=== PATIENT | female | born 1985 | race Caucasian/White ===

== ENCOUNTER 2016-11-03 08:57 | Emergency (ER) | payer OTHER ==
[~2016-11-03] VITALS: Ht 165.1 cm; Wt 77.3 kg
[~2016-11-03 08:57] MED LIST: ADDERALL XR 1515 MG PO; ADDERALL XR 2020 MG PO; ADDERALL XR 3030 MG PO; ADDERALL10 MG PO; ADDERALL20 MG PO; ADDERALL30 MG PO; ALPRAZOLAM1 MG PO; ALPRAZOLAM2 MG PO; ASPIRIN600 MG PR; ATARAX,VISTARIL50 MG PO; ATORVASTATIN CA80 MG PO; Aspirin E.C. PO; BUPROPION HCL150 M2 PO; CATAPRES0.1 MG PO; CEFTIN500 MG PO; CIPRO500 MG PO; CLARITIN-D 121 EACH PO; CLONIDINE HCL0.1 MG PO; COUMADIN4 MG PO; COUMADIN5 MG PO; Colace PO; Coumadin Protocol PO; DEXTROAMP-AMPHE30 MG PO; ENDOCET 5-3251 EACH PO; FLEXERIL10 MG PO; FLEXERIL5 MG PO; Feosol PO; HYDROCODON-ACE1 EAC5 PO; HYDROCODON-ACE1 EAC7 PO; Habitrol,Nicoderm CQ TD; Heparin IV; IRON PO; IRON SUPPLEMEN325 MG PO; KEFLEX500 MG PO; LEVAQUIN750 MG PO; LIDOCAINE700 MG TD; LIORESAL10 MG PO; LODINE200 MG PO; LOVENOX100 MG/1 M SC; LOVENOX60 MG/0.6 SC; LOVENOX80 MG/0.8 SC; LYRICA100 MG PO; Lovenox SC; MACROBID100 MG PO; MIRTAZAPINE15 MG PO; MIRTAZAPINE45 MG PO; MOBIC15 MG PO; MOTRIN800 MG PO; Motrin PO; NAPROSYN500 MG PO; NATALCARE RX1 TABLET PO; NICOTINE PATCH1 EAC2 TD; NORCO 5/3251 TABLET PO; PEN-VEE K,VEET500 MG PO; PERCOCET 5/31 TABLET PO; PREDNISONE10 M1 PO; PREDNISONE20 MG PO; PRENATAL TABLE1 EAC3 PO; Percocet 5/325,Endoc PO; Proventil,Ventolin H IH; QUETIAPINE FUM100 MG PO; QUETIAPINE FUM300 MG PO; QUETIAPINE FUM400 MG PO; REMERON PO; REMERON45 MG PO; Remove Nicotine Patc TD; SENNA-TIME S T1 EACH PO; SEROQUEL XR300 MG PO; SEROQUEL100 MG PO; SEROQUEL400 MG PO; SEROquel PO; SKELAXIN800 MG PO; SODIUM CHLOR1L 0.9 IV; SUBUTEX8 MG SL; TOPIRAMATE25 MG PO; TOPIRAMATE50 MG PO; TORADOL10 MG PO; TRAMADOL HCL50 MG PO; TRAZODONE HCL50 MG PO; ULTRAM50 MG PO; VALIUM5 MG PO; VENTOLIN HFA18 GM IH; Vibramycin, Doryx PO; WARFARIN SODIUM5 MG PO; XANAX1 MG PO; XANAX2 MG PO; XARELTO1 EACH PO; XARELTO20 MG PO; ZANTAC150 MG PO; ZITHROMAX Z-PA250 MG PO; ZOFRAN4 MG PO; Zantac PO; albuterol sulfate
[2016-11-03] MEDS ORDERED: REMERON45 MG PO (09:08)
[2016-11-03] MEDS ORDERED: SEROQUEL400 MG PO (09:08)
[2016-11-03] MEDS ORDERED: XARELTO15 MG PO (09:08)
[2016-11-03] MEDS ORDERED: ADDERALL30 MG PO (09:08)
[2016-11-03 09:26] LABS: HEMATOCRIT 31.1 % (36.0-46.0); MCH 30.6 PG (29.0-34.0); MCHC 33.1 G/DL (30.0-36.0); MCV 92.3 FL (83-99); MEAN PLAT.VOLUME 9.3 uM^3 (9.5-12.4); PLATELET COUNT 377 K/uL (156-360); RBC DIS.WIDTH-CV 14.1 % (11.8-14.6); RBC DIS.WIDTH-SD 45.8 % (39-53); RED BLOOD COUNT 3.37 M/uL (3.80-5.20); WHITE BLOOD COUNT 10.5 K/uL (4.1-10.2)
[2016-11-03 09:33] LABS: INTER. NORMALIZED RATIO 0.9; PROTHROMBIN TIME 9.5 (9.2-11.2)
[2016-11-03 09:35] LABS: CHLORIDE 109 mEq/L (99-109); POTASSIUM 3.7 mEq/L (3.7-5.4); SODIUM 137 mEq/L (136-147)
[2016-11-03 09:37] LABS: GLUCOSE 95 mg/dL (70-99)
[2016-11-03 09:38] LABS: ANION GAP 12 MEQ/L (2-14)
[2016-11-03 09:41] LABS: GFR ESTIMATE (CALCULATED) > 59 mL/min/
[2016-11-03 09:42] LABS: UREA NITROGEN (BUN) 12 mg/dL (9-23)
[2016-11-03 11:40] VITALS: BP 113/75
== END 2016-11-03 11:42 | disposition left against medical advice (07) ==
LOC: EME → EDBD 08:57 → EME 08:57
PROVIDERS: Nurse Practitioner Family
DX: M79.89 Other specified soft tissue disorders (principal); Z53.20 Procedure and treatment not carried out because of patient's decision for unspecified reasons
CPT/HCPCS: 80048; 85027; 85610; 93971; 99281; 99284

== ENCOUNTER 2016-12-25 17:42 | Inpatient (IN) | payer OTHER ==
[2016-12-25] VITALS (15 sets, daily range): BP systolic 114–187; BP diastolic 64–144
[~2016-12-25] VITALS: Ht 165.1 cm; Wt 72.8 kg
[~2016-12-25 17:42] MED LIST changes: +XARELTO15 MG PO
[2016-12-25] MEDS ORDERED: Subutex PO (18:06)
[2016-12-25 18:47] LABS: Estimated Average Glucose 103 mg/dL (70-123); HEMOGLOBIN A1c (GLYCOHEMOGLOB) 5.2 % HGB (Below 5.7)
[2016-12-25 18:48] LABS: HEMATOCRIT 34.8 % (36.0-46.0); MCH 29.1 PG (29.0-34.0); MCHC 31.9 G/DL (30.0-36.0); MCV 91.1 FL (83-99); MEAN PLAT.VOLUME 9.8 uM^3 (9.5-12.4); PLATELET COUNT 235 K/uL (156-360); RBC DIS.WIDTH-CV 15.2 % (11.8-14.6); RBC DIS.WIDTH-SD 50.4 % (39-53); RED BLOOD COUNT 3.82 M/uL (3.80-5.20); WHITE BLOOD COUNT 13.8 K/uL (4.1-10.2)
[2016-12-25 18:51] LABS: PTT 27.5 (25-32)
[2016-12-25 19:02] LABS: FIBRINOGEN 542 MG/DL (160-450)
[2016-12-25 19:11] LABS: INTER. NORMALIZED RATIO 0.9
[2016-12-25 19:39] LABS: ANION GAP 8 MEQ/L (2-14); CHLORIDE 106 MEQ/L (99-109); POTASSIUM 3.9 MEQ/L (3.7-5.4); SAMPLE HEMOLYSIS CHECK 0; SAMPLE ICTERIC CHECK 0; SAMPLE LIPEMIA CHECK 0; SODIUM 137 MEQ/L (136-147); TOTAL BILIRUBIN 0.2 MG/DL (0.0-1.0)
[2016-12-25 19:45] LABS: ALKALINE PHOSPHATASE 153 IU/L (3-129); GFR ESTIMATE (CALCULATED) > 59 mL/min/; GLUCOSE 73 mg/dL (70-99); LACTATE DEHYDROGENASE 192 IU/L (20-246); UREA NITROGEN (BUN) 17 mg/dL (9-23); URIC ACID 5.5 mg/dL (3.1-9.2)
[2016-12-25 20:40] LABS: AMPHETAMINES QUANT VALUE 0 NG/ML; BARBITUATES QUANT VALUE 0 NG/ML; BENZODIAZEPINES QUANT VALUE 0 NG/ML; BENZODIAZEPINES, URINE SCREEN Negative (200 ng/mL); MARIJUANA QUANT VALUE 0 NG/ML; OPIATES QUANTITATIVE VALUE 0 NG/ML; PHENCYCLIDINE QUANT VALUE 0 NG/ML; UR CREATININE CONCENTRATION 53.4 MG/DL
[2016-12-26 03:54] VITALS: BP 114/68
[2016-12-26 06:46] LABS: EOSINOPHIL (%) 0.4 % (0-5); EOSINOPHIL COUNT 0.1 K/uL (0-0.3); HEMATOCRIT 28.1 % (36.0-46.0); IMMATURE GRANULOCYTE (%) 0.6 % (0.0-0.7); IMMATURE GRANULOCYTE COUNT 0.1 K/uL; INSTRUMENT ABS NEUTROPHIL CT 11.5 K/uL; MCH 29.6 PG (29.0-34.0); MCHC 33.1 G/DL (30.0-36.0); MCV 89.5 FL (83-99); MEAN PLAT.VOLUME 10.3 uM^3 (9.5-12.4); MONOCYTE (%) 4.1 % (3-12); MONOCYTE COUNT 0.6 K/uL (0-0.8); NEUTROPHIL (%) 80.5 % (45-76); NEUTROPHIL COUNT 11.5 K/uL (1.8-6.4); PLATELET COUNT 214 K/uL (156-360); RBC DIS.WIDTH-CV 15.1 % (11.8-14.6); RED BLOOD COUNT 3.14 M/uL (3.80-5.20); WHITE BLOOD COUNT 14.3 K/uL (4.1-10.2)
[2016-12-26 07:36] VITALS: BP 126/68
[2016-12-26] MEDS ORDERED: AUGMENTIN875 MG PO (07:54)
[2016-12-26] MEDS ORDERED: LOVENOX40 MG/0.4 SC (07:54)
[2016-12-26] MEDS ORDERED: IBUPROFEN800 MG PO (07:54)
[2016-12-26 08:47] LABS: TREPONEMA ANTIBODY NEGATIVE (NEGATIVE)
[2016-12-26 10:34] LABS: HPCA INDEX 0.18
[2016-12-26 10:35] LABS: ANTI-HEPATITIS A VIRUS (IGM) Nonreactive; HAV INDEX 0.09
[2016-12-26 10:36] LABS: ANTI-HEPATITIS B CORE (IGM) Nonreactive; HBC IgM INDEX 0.07
[2016-12-26 15:30] VITALS: BP 108/70
[2016-12-26 20:00] VITALS: BP 127/69
[2016-12-26 22:31] VITALS: BP 94/62
[2016-12-27 04:49] VITALS: BP 129/66
[2016-12-27 07:52] VITALS: BP 126/78
[2016-12-27] MEDS ORDERED: DOCUSATE SODIU100 MG PO (10:49)
[2016-12-27] MEDS ORDERED: HEMOCYTE324 MG PO (10:50)
[2016-12-27] MEDS ORDERED: IBUPROFEN800 MG PO (10:51)
[2016-12-27] MEDS ORDERED: LOVENOX60 MG/0.6 SC (10:51)
[2016-12-27 13:24] LABS: CHLAMYDIA TRACHOMATIS NEGATIVE; NEISSERIA GONORRHOEAE NEGATIVE
== END 2016-12-27 13:45 | disposition home or self-care (01) | DRG 775 ==
LOC: LDRP-OP 17:42 → 2WEST 17:47 → LDRP-OP 03-14 17:42
PROVIDERS: Advanced Practice Midwife; Obstetrics & Gynecology Obstetrics
PROC: 10E0XZZ Delivery of Products of Conception, External Approach (ICD-10-PCS; principal; 2016-12-25)
PROC: 3E0P7GC Introduction of Other Therapeutic Substance into Female Reproductive, Via Natural or Artificial Opening (ICD-10-PCS; 2016-12-25)
DX: O36.4XX1 Maternal care for intrauterine death, fetus 1 (principal); O60.14X1 Preterm labor third trimester with preterm delivery third trimester, fetus 1; F33.9 Major depressive disorder, recurrent, unspecified; F11.20 Opioid dependence, uncomplicated; Z37.1 Single stillbirth; O99.344 Other mental disorders complicating childbirth; O36.8130 Decreased fetal movements, third trimester, not applicable or unspecified; O99.334 Smoking (tobacco) complicating childbirth; O77.0 Labor and delivery complicated by meconium in amniotic fluid; F90.9 Attention-deficit hyperactivity disorder, unspecified type; F41.9 Anxiety disorder, unspecified; F17.210 Nicotine dependence, cigarettes, uncomplicated; Z3A.31 31 weeks gestation of pregnancy; Z86.73 Personal history of transient ischemic attack (TIA), and cerebral infarction without residual deficits; Z86.718 Personal history of other venous thrombosis and embolism; Z86.711 Personal history of pulmonary embolism; Z91.128 Patient's intentional underdosing of medication regimen for other reason
CPT/HCPCS: 76805; 80053; 80074; 80306 90; 82570; 83030; 83036; 83615; 84156; 84550; 85025; 85027; 85384; 85610; 85730; 86780; 86850; 86900; 86901; 87070; 87075; 87076; 87077; 87081; 87185; 87186; 87205; 87491; 87591; 88307; C1755; G0480; J0290; J0571; J1650; J2790; J7050; J7120

== ENCOUNTER 2017-05-01 00:17 | Emergency (ER) | payer OTHER ==
[~2017-05-01] VITALS: Ht 165.1 cm; Wt 68.3 kg
[~2017-05-01 00:17] MED LIST changes: +AUGMENTIN875 MG PO; +DOCUSATE SODIU100 MG PO; +HEMOCYTE324 MG PO; +IBUPROFEN800 MG PO; +LOVENOX40 MG/0.4 SC; +Subutex PO
[2017-05-01] MEDS ORDERED: PERCOCET 5/31 TABLET PO (02:01)
[2017-05-01 02:54] VITALS: BP 113/76
== END 2017-05-01 02:56 | disposition home or self-care (01) ==
LOC: EME 00:17
DX: S30.0XXA Contusion of lower back and pelvis, initial encounter (principal); W18.2XXA Fall in (into) shower or empty bathtub, initial encounter; Y93.E1 Activity, personal bathing and showering; M51.26 Other intervertebral disc displacement, lumbar region; I69.351 Hemiplegia and hemiparesis following cerebral infarction affecting right dominant side; R29.6 Repeated falls; Z86.711 Personal history of pulmonary embolism; Z86.718 Personal history of other venous thrombosis and embolism; F17.200 Nicotine dependence, unspecified, uncomplicated
CPT/HCPCS: 72131; 99281; 99284

== ENCOUNTER 2017-05-09 20:31 | Emergency (ER) | payer OTHER ==
[~2017-05-09] VITALS: Ht 152.4 cm; Wt 66.5 kg
[2017-05-09 23:27] VITALS: BP 106/67
== END 2017-05-09 23:20 | disposition home or self-care (01) ==
LOC: EME 20:31
DX: R07.89 Other chest pain (principal); G89.29 Other chronic pain; Z91.81 History of falling; Z86.73 Personal history of transient ischemic attack (TIA), and cerebral infarction without residual deficits; F17.200 Nicotine dependence, unspecified, uncomplicated
CPT/HCPCS: 71020; 99281; 99284

== ENCOUNTER 2017-06-19 18:04 | Emergency (ER) | payer OTHER ==
[~2017-06-19] VITALS: Ht 165.1 cm; Wt 65.8 kg
[2017-06-19 19:07] VITALS: BP 126/84
== END 2017-06-19 19:14 | disposition home or self-care (01) ==
LOC: EME 18:04
DX: R41.82 Altered mental status, unspecified (principal); F19.10 Other psychoactive substance abuse, uncomplicated; Z86.711 Personal history of pulmonary embolism; Z86.718 Personal history of other venous thrombosis and embolism; F17.200 Nicotine dependence, unspecified, uncomplicated
CPT/HCPCS: 93005; 99281; 99284

== ENCOUNTER 2017-07-30 12:10 | Emergency (ER) | payer OTHER ==
[~2017-07-30] VITALS: Ht 165.1 cm; Wt 63.8 kg
[2017-07-30 13:34] LABS: ADD MIUA? YES; BILIRUBIN NEGATIVE; BLOOD MODERATE; COLOR YELLOW ((YELLOW)); GLUCOSE (STRIP) NEGATIVE; KETONES NEGATIVE; LEUKOCYTES LARGE; NITRITE POSITIVE; PROTEIN (STRIP) 100; SPECIFIC GRAVITY 1.015 (1.000-1.030); UROBILINOGEN 0.2 MG/DL (0.2-1.0)
[2017-07-30 13:41] LABS: BACTERIA RARE /HPF; CALCIUM OXALATE CRYSTALS 1+ /HPF; EPITHELIAL CELLS 1+ /HPF; MUCUS TRACE /LPF; WHITE BLOOD CELLS TNTC /HPF (0-5)
[2017-07-30 13:53] LABS: EOSINOPHIL (%) 0 % (0-5); HEMATOCRIT 35.4 % (36.0-46.0); IMMATURE GRANULOCYTE (%) 0.4 % (0.0-0.7); INSTRUMENT ABS NEUTROPHIL CT 8.5 K/uL; LYMPHOCYTE COUNT 1.4 K/uL (1.0-2.8); MCH 27.2 PG (29.0-34.0); MCHC 31.4 G/DL (30.0-36.0); MCV 86.8 FL (83-99); MEAN PLAT.VOLUME 10.2 uM^3 (9.5-12.4); MONOCYTE (%) 6.5 % (3-12); MONOCYTE COUNT 0.7 K/uL (0-0.8); NEUTROPHIL (%) 79.8 % (45-76); NEUTROPHIL COUNT 8.5 K/uL (1.8-6.4); PLATELET COUNT 282 K/uL (156-360); RBC DIS.WIDTH-CV 16.5 % (11.8-14.6); RBC DIS.WIDTH-SD 52.7 % (39-53); RED BLOOD COUNT 4.08 M/uL (3.80-5.20); WHITE BLOOD COUNT 10.7 K/uL (4.1-10.2)
[2017-07-30 14:02] LABS: CHLORIDE 107 mEq/L (99-109); POTASSIUM 4.4 mEq/L (3.7-5.4); SODIUM 138 mEq/L (136-147)
[2017-07-30 14:03] LABS: GLUCOSE 75 mg/dL (70-99)
[2017-07-30 14:05] LABS: ANION GAP 11 MEQ/L (2-14)
[2017-07-30 14:07] LABS: GFR ESTIMATE (CALCULATED) 55 mL/min/
[2017-07-30 14:08] LABS: UREA NITROGEN (BUN) 14 mg/dL (9-23)
[2017-07-30 14:10] LABS: CREATINE KINASE 266 IU/L (1-294)
[2017-07-30] MEDS ORDERED: INDOCIN25 MG PO (14:35)
[2017-07-30] MEDS ORDERED: KEFLEX500 MG PO (14:35)
[2017-07-30 15:36] VITALS: BP 93/53
== END 2017-07-30 15:37 | disposition home or self-care (01) ==
LOC: EME 12:10
PROVIDERS: Physician Assistant
DX: N39.0 Urinary tract infection, site not specified (principal); J06.9 Acute upper respiratory infection, unspecified; M79.1 Myalgia; I69.951 Hemiplegia and hemiparesis following unspecified cerebrovascular disease affecting right dominant side; Z86.718 Personal history of other venous thrombosis and embolism; Z86.711 Personal history of pulmonary embolism; F17.200 Nicotine dependence, unspecified, uncomplicated
CPT/HCPCS: 80048; 81003; 82550; 85025; 87077; 87086; 87186; 99281; 99284; J0696; J1885

== ENCOUNTER 2017-08-11 12:24 | Inpatient (IN) | payer OTHER ==
[~2017-08-11] VITALS: Ht 165.1 cm; Wt 74.0 kg
[~2017-08-11 12:24] MED LIST changes: +INDOCIN25 MG PO
[2017-08-11 12:53] LABS: EOSINOPHIL (%) 0 % (0-5); HEMATOCRIT 28.6 % (36.0-46.0); IMMATURE GRANULOCYTE (%) 1.3 % (0.0-0.7); IMMATURE GRANULOCYTE COUNT 0.3 K/uL; INSTRUMENT ABS NEUTROPHIL CT 17.6 K/uL; LYMPHOCYTE COUNT 0.8 K/uL (1.0-2.8); MCH 27.5 PG (29.0-34.0); MCHC 31.8 G/DL (30.0-36.0); MCV 86.4 FL (83-99); MEAN PLAT.VOLUME 9.7 uM^3 (9.5-12.4); MONOCYTE (%) 6.9 % (3-12); MONOCYTE COUNT 1.4 K/uL (0-0.8); NEUTROPHIL (%) 87.6 % (45-76); NEUTROPHIL COUNT 17.6 K/uL (1.8-6.4); PLATELET COUNT 291 K/uL (156-360); RBC DIS.WIDTH-SD 50.7 % (39-53); RED BLOOD COUNT 3.31 M/uL (3.80-5.20); WHITE BLOOD COUNT 20.2 K/uL (4.1-10.2)
[2017-08-11 13:01] LABS: CHLORIDE 100 mEq/L (99-109); POTASSIUM 4.4 mEq/L (3.7-5.4); SODIUM 131 mEq/L (136-147)
[2017-08-11 13:02] LABS: GLUCOSE 102 mg/dL (70-99)
[2017-08-11 13:04] LABS: ANION GAP 8 MEQ/L (2-14)
[2017-08-11 13:06] LABS: GFR ESTIMATE (CALCULATED) 21 mL/min/
[2017-08-11 13:07] LABS: UREA NITROGEN (BUN) 24 mg/dL (9-23)
[2017-08-11 15:48] LABS: INFLUENZA A VIRAL ANTIGEN NEGATIVE; INFLUENZA B VIRAL ANTIGEN NEGATIVE
[2017-08-11 17:35] LABS: AMPHETAMINE NEGATIVE (500 ng/mL); BARBITURATES NEGATIVE (200 ng/mL); BENZODIAZEPINES NEGATIVE (150 ng/mL); COCAINE PRESUMPTIVE POSITIVE (150 ng/mL); INTERNAL CONTROLS VALID? YES; METHADONE NEGATIVE (200 ng/mL); METHAMPHETAMINE NEGATIVE (500 ng/mL); OPIATES (MORPHINE) PRESUMPTIVE POSITIVE (100 ng/mL); OXYCODONE NEGATIVE (100 ng/mL); PHENCYCLIDINE NEGATIVE (25 ng/mL); PROPOXYPHENE NEGATIVE (300 ng/mL); THC CANNABINOIDS NEGATIVE (50 ng/mL); TRICYCLIC ANTIDEPRESSANTS NEGATIVE (300 ng/mL)
[2017-08-11 17:36] LABS: ADD MEDTOX COMMENT Y
[2017-08-11 17:49] LABS: ADD MIUA? YES; BILIRUBIN NEGATIVE; BLOOD SMALL; COLOR AMBER ((YELLOW)); GLUCOSE (STRIP) NEGATIVE; KETONES NEGATIVE; LEUKOCYTES LARGE; NITRITE NEGATIVE; PROTEIN (STRIP) >=500; SPECIFIC GRAVITY 1.013 (1.000-1.030)
[2017-08-11 18:00] LABS: OPIATES QUANTITATIVE VALUE 0 NG/ML
[2017-08-11 18:02] LABS: BACTERIA 2+ /HPF; EPITHELIAL CELLS 1+ /HPF; MUCUS TRACE /LPF; WHITE BLOOD CELLS TNTC /HPF (0-5); WHITE BLOOD CELLS CLUMP MANY /HPF (0-5)
[2017-08-11] MEDS ORDERED: XARELTO20 MG PO (18:22)
[2017-08-11] MEDS ORDERED: TYLENOL EXTRA500 MG PO (18:24)
[2017-08-11 18:30] LABS: CHLORIDE 100 mEq/L (99-109); POTASSIUM 3.9 mEq/L (3.7-5.4); SODIUM 132 mEq/L (136-147)
[2017-08-11 18:33] LABS: GLUCOSE 95 mg/dL (70-99)
[2017-08-11 18:34] LABS: ANION GAP 9 MEQ/L (2-14)
[2017-08-11 18:35] LABS: TOTAL BILIRUBIN 0.5 mg/dL (0.0-1.0)
[2017-08-11 18:36] LABS: ALKALINE PHOSPHATASE 68 IU/L (3-129); GFR ESTIMATE (CALCULATED) 20 mL/min/
[2017-08-11 18:37] LABS: UREA NITROGEN (BUN) 27 mg/dL (9-23)
[2017-08-11 18:41] LABS: TROP-I INTERPRETATION NEGATIVE; TROPONIN-I < 0.01 ng/mL (0.0-0.30)
[2017-08-11 22:37] LABS: INTER. NORMALIZED RATIO 1.3; PROTHROMBIN TIME 15.2 SEC (10.2-12.9)
[2017-08-12] VITALS (23 sets, daily range): BP systolic 79–140; BP diastolic 50–98
[2017-08-12] MEDS ORDERED: BUPRENORPHINE HC8 MG SL (01:28)
[2017-08-12 02:15] LABS: METH RESISTANT S AUREUS PCR NEGATIVE (NEGATIVE); PROBE CHECK PASS; SPECIMEN PROCESSING CONTROL PASS
[2017-08-12 04:57] LABS: INTER. NORMALIZED RATIO 1.3; PROTHROMBIN TIME 14.3 SEC (10.2-12.9)
[2017-08-12 05:01] LABS: CHLORIDE 110 mEq/L (99-109); EOSINOPHIL (%) 0.6 % (0-5); EOSINOPHIL COUNT 0.1 K/uL (0-0.3); IMMATURE GRANULOCYTE (%) 0.5 % (0.0-0.7); IMMATURE GRANULOCYTE COUNT 0.1 K/uL; INSTRUMENT ABS NEUTROPHIL CT 8.3 K/uL; LYMPHOCYTE COUNT 0.7 K/uL (1.0-2.8); MCH 27.5 PG (29.0-34.0); MCHC 31.4 G/DL (30.0-36.0); MCV 87.6 FL (83-99); MEAN PLAT.VOLUME 10.4 uM^3 (9.5-12.4); MONOCYTE COUNT 0.6 K/uL (0-0.8); NEUTROPHIL (%) 85.2 % (45-76); NEUTROPHIL COUNT 8.3 K/uL (1.8-6.4); PLATELET COUNT 205 K/uL (156-360); POTASSIUM 4.1 mEq/L (3.7-5.4); RBC DIS.WIDTH-CV 16.5 % (11.8-14.6); RBC DIS.WIDTH-SD 53.3 % (39-53); WHITE BLOOD COUNT 9.7 K/uL (4.1-10.2)
[2017-08-12 05:02] LABS: RED BLOOD COUNT 2.51 M/uL (3.80-5.20); SODIUM 136 mEq/L (136-147)
[2017-08-12 05:03] LABS: GLUCOSE 91 mg/dL (70-99)
[2017-08-12 05:05] LABS: ANION GAP 7 MEQ/L (2-14)
[2017-08-12 05:07] LABS: GFR ESTIMATE (CALCULATED) 21 mL/min/
[2017-08-12 05:08] LABS: UREA NITROGEN (BUN) 30 mg/dL (9-23)
[2017-08-12 19:48] LABS: HEMATOCRIT 26.1 % (36.0-46.0); MCH 27.2 PG (29.0-34.0); MCHC 31.4 G/DL (30.0-36.0); MCV 86.4 FL (83-99); MEAN PLAT.VOLUME 10.2 uM^3 (9.5-12.4); PLATELET COUNT 249 K/uL (156-360); RBC DIS.WIDTH-CV 16.5 % (11.8-14.6); RBC DIS.WIDTH-SD 51.6 % (39-53); WHITE BLOOD COUNT 9.6 K/uL (4.1-10.2)
[2017-08-12 20:59] LABS: RED BLOOD COUNT 3.02 M/uL (3.80-5.20)
[2017-08-13] VITALS (17 sets, daily range): BP systolic 92–114; BP diastolic 55–71
[2017-08-13 05:30] LABS: EOSINOPHIL COUNT 0.2 K/uL (0-0.3); HEMATOCRIT 25.3 % (36.0-46.0); IMMATURE GRANULOCYTE (%) 0.4 % (0.0-0.7); INSTRUMENT ABS NEUTROPHIL CT 5.8 K/uL; INTER. NORMALIZED RATIO 1.2; LYMPHOCYTE COUNT 1.1 K/uL (1.0-2.8); MCH 27.6 PG (29.0-34.0); MCHC 31.6 G/DL (30.0-36.0); MCV 87.2 FL (83-99); MEAN PLAT.VOLUME 11.2 uM^3 (9.5-12.4); MONOCYTE (%) 4.4 % (3-12); MONOCYTE COUNT 0.3 K/uL (0-0.8); NEUTROPHIL (%) 78.1 % (45-76); NEUTROPHIL COUNT 5.8 K/uL (1.8-6.4); PLATELET COUNT 222 K/uL (156-360); PROTHROMBIN TIME 14.1 SEC (10.2-12.9); RBC DIS.WIDTH-CV 16.8 % (11.8-14.6); RBC DIS.WIDTH-SD 54.2 % (39-53); WHITE BLOOD COUNT 7.5 K/uL (4.1-10.2)
[2017-08-13 06:02] LABS: ANION GAP 9 MEQ/L (2-14); CHLORIDE 114 MEQ/L (99-109); GFR ESTIMATE (CALCULATED) 19 mL/min/; GLUCOSE 73 mg/dL (70-99); POTASSIUM 4.7 MEQ/L (3.7-5.4); SAMPLE HEMOLYSIS CHECK 1; SAMPLE ICTERIC CHECK 0; SAMPLE LIPEMIA CHECK 0; SODIUM 141 MEQ/L (136-147); UREA NITROGEN (BUN) 31 mg/dL (9-23)
[2017-08-14 06:51] LABS: EOSINOPHIL (%) 2.2 % (0-5); EOSINOPHIL COUNT 0.2 K/uL (0-0.3); HEMATOCRIT 27.3 % (36.0-46.0); IMMATURE GRANULOCYTE (%) 0.7 % (0.0-0.7); IMMATURE GRANULOCYTE COUNT 0.1 K/uL; INSTRUMENT ABS NEUTROPHIL CT 5.6 K/uL; MCH 26.8 PG (29.0-34.0); MCHC 31.1 G/DL (30.0-36.0); MCV 86.1 FL (83-99); MEAN PLAT.VOLUME 10.8 uM^3 (9.5-12.4); MONOCYTE (%) 9.8 % (3-12); MONOCYTE COUNT 0.8 K/uL (0-0.8); NEUTROPHIL (%) 73.5 % (45-76); NEUTROPHIL COUNT 5.6 K/uL (1.8-6.4); RBC DIS.WIDTH-CV 16.9 % (11.8-14.6); RBC DIS.WIDTH-SD 53.3 % (39-53); RED BLOOD COUNT 3.17 M/uL (3.80-5.20); WHITE BLOOD COUNT 7.6 K/uL (4.1-10.2)
[2017-08-14 06:54] LABS: INTER. NORMALIZED RATIO 1.2; PROTHROMBIN TIME 13.9 SEC (10.2-12.9)
[2017-08-14 07:06] LABS: PLATELET COUNT 309 K/uL (156-360)
[2017-08-14 07:33] LABS: ANION GAP 10 MEQ/L (2-14); CHLORIDE 113 MEQ/L (99-109); GFR ESTIMATE (CALCULATED) 22 mL/min/; GLUCOSE 72 mg/dL (70-99); POTASSIUM 4.8 MEQ/L (3.7-5.4); SAMPLE HEMOLYSIS CHECK 0; SAMPLE ICTERIC CHECK 0; SAMPLE LIPEMIA CHECK 0; SODIUM 141 MEQ/L (136-147); UREA NITROGEN (BUN) 27 mg/dL (9-23)
[2017-08-14 08:05] VITALS: BP 102/60
[2017-08-14 13:52] LABS: HIV INDEX 0.12; HIV-1/2 AB/AG COMBO Nonreactive; HPCA INDEX 0.28
[2017-08-14 18:02] VITALS: BP 136/74
[2017-08-14 23:58] VITALS: BP 109/65
[2017-08-15 06:27] LABS: HEMATOCRIT 28.8 % (36.0-46.0); MCH 27.1 PG (29.0-34.0); MCHC 31.6 G/DL (30.0-36.0); MCV 85.7 FL (83-99); MEAN PLAT.VOLUME 10.3 uM^3 (9.5-12.4); PLATELET COUNT 357 K/uL (156-360); RBC DIS.WIDTH-CV 16.6 % (11.8-14.6); RBC DIS.WIDTH-SD 52.8 % (39-53); RED BLOOD COUNT 3.36 M/uL (3.80-5.20); WHITE BLOOD COUNT 7.5 K/uL (4.1-10.2)
[2017-08-15 06:57] LABS: ANION GAP 6 MEQ/L (2-14); CHLORIDE 112 MEQ/L (99-109); GFR ESTIMATE (CALCULATED) 23 mL/min/; GLUCOSE 68 mg/dL (70-99); POTASSIUM 5.2 MEQ/L (3.7-5.4); SAMPLE HEMOLYSIS CHECK 0; SAMPLE ICTERIC CHECK 0; SAMPLE LIPEMIA CHECK 0; SODIUM 141 MEQ/L (136-147); UREA NITROGEN (BUN) 23 mg/dL (9-23)
[2017-08-15 07:38] VITALS: BP 110/64
[2017-08-15] MEDS ORDERED: INVANZ1 GM IV (15:57)
== END 2017-08-15 16:59 | disposition home or self-care (01) | DRG 871 ==
LOC: EME 12:24 → EDOF 19:57 → 4WEST 19:57 → ENRESERV 20:01 → EDOF 08-12 00:03 → ENRESERV 08-12 00:05 → 4WEST 08-12 00:51 → ENRESERV 08-13 14:37 → 5SOUTH 08-13 15:33
PROVIDERS: Hospitalist; Internal Medicine; Internal Medicine Critical Care Medicine; Nurse Practitioner Family; Surgery
PROC: 30233N1 Transfusion of Nonautologous Red Blood Cells into Peripheral Vein, Percutaneous Approach (ICD-10-PCS; principal; 2017-08-12)
DX: A41.51 Sepsis due to Escherichia coli [E. coli] (principal); N10 Acute pyelonephritis; B96.20 Unspecified Escherichia coli [E. coli] as the cause of diseases classified elsewhere; R65.21 Severe sepsis with septic shock; N17.0 Acute kidney failure with tubular necrosis; Z16.12 Extended spectrum beta lactamase (ESBL) resistance; F11.20 Opioid dependence, uncomplicated; F14.10 Cocaine abuse, uncomplicated; F19.10 Other psychoactive substance abuse, uncomplicated; N30.00 Acute cystitis without hematuria; D66 Hereditary factor VIII deficiency; D68.62 Lupus anticoagulant syndrome; E86.0 Dehydration; J90 Pleural effusion, not elsewhere classified; D64.9 Anemia, unspecified; E88.09 Other disorders of plasma-protein metabolism, not elsewhere classified; E87.1 Hypo-osmolality and hyponatremia; I10 Essential (primary) hypertension; I69.351 Hemiplegia and hemiparesis following cerebral infarction affecting right dominant side; F31.9 Bipolar disorder, unspecified; G43.909 Migraine, unspecified, not intractable, without status migrainosus; K21.9 Gastro-esophageal reflux disease without esophagitis; F17.200 Nicotine dependence, unspecified, uncomplicated; Z59.0 Homelessness; Z56.0 Unemployment, unspecified; Z91.14 Patient's other noncompliance with medication regimen; Z81.1 Family history of alcohol abuse and dependence; Z80.1 Family history of malignant neoplasm of trachea, bronchus and lung; Z90.49 Acquired absence of other specified parts of digestive tract; Z91.19 Patient's noncompliance with other medical treatment and regimen; Z79.01 Long term (current) use of anticoagulants; Z96.89 Presence of other specified functional implants; Z86.711 Personal history of pulmonary embolism; Z86.718 Personal history of other venous thrombosis and embolism
CPT/HCPCS: 71020; 74176; 76770; 80048; 80053; 81003; 83605; 84484; 84999; 85025; 85027; 85610; 86703; 86803; 86850; 86900; 86901; 86920; 87040; 87077; 87086; 87186; 87502; 87641; 87651 90; 87801; 93005; 99281; 99285; J0610; J0696; J1335; J1650; J2405; J2543; J7030; J7050; P9016; S0028

== ENCOUNTER 2017-08-25 09:56 | Emergency (ER) | payer OTHER ==
[~2017-08-25] VITALS: Ht 165.1 cm; Wt 72.8 kg
[~2017-08-25 09:56] MED LIST changes: +BUPRENORPHINE HC8 MG SL; +INVANZ1 GM IV; +TYLENOL EXTRA500 MG PO
[2017-08-25 10:41] LABS: BASOPHIL COUNT 0.1 K/uL (0-0.1); EOSINOPHIL (%) 0.3 % (0-5); EOSINOPHIL COUNT 0.1 K/uL (0-0.3); HEMATOCRIT 34.5 % (36.0-46.0); IMMATURE GRANULOCYTE (%) 0.7 % (0.0-0.7); IMMATURE GRANULOCYTE COUNT 0.1 K/uL; INSTRUMENT ABS NEUTROPHIL CT 13.8 K/uL; LYMPHOCYTE COUNT 1.3 K/uL (1.0-2.8); MCH 27.7 PG (29.0-34.0); MCV 89.4 FL (83-99); MEAN PLAT.VOLUME 9.6 uM^3 (9.5-12.4); MONOCYTE (%) 4.5 % (3-12); MONOCYTE COUNT 0.7 K/uL (0-0.8); NEUTROPHIL (%) 86.2 % (45-76); NEUTROPHIL COUNT 13.8 K/uL (1.8-6.4); PLATELET COUNT 458 K/uL (156-360); RBC DIS.WIDTH-CV 16.4 % (11.8-14.6); RBC DIS.WIDTH-SD 54.2 % (39-53); RED BLOOD COUNT 3.86 M/uL (3.80-5.20)
[2017-08-25 10:51] LABS: CHLORIDE 108 mEq/L (99-109); POTASSIUM 4.9 mEq/L (3.7-5.4); SODIUM 140 mEq/L (136-147)
[2017-08-25 10:52] LABS: GLUCOSE 94 mg/dL (70-99)
[2017-08-25 10:54] LABS: ANION GAP 9 MEQ/L (2-14)
[2017-08-25 10:56] LABS: GFR ESTIMATE (CALCULATED) 46 mL/min/
[2017-08-25 10:57] LABS: UREA NITROGEN (BUN) 30 mg/dL (9-23)
[2017-08-25 12:50] LABS: INTER. NORMALIZED RATIO 1.1; PROTHROMBIN TIME 12.5 SEC (10.2-12.9)
[2017-08-25 12:53] LABS: PTT 27.7 SEC (25-37)
[2017-08-25 17:47] VITALS: BP 113/71
== END 2017-08-25 17:53 | disposition short-term general hospital (02) ==
LOC: EME → EDBD 09:56 → EME 09:56
PROVIDERS: Emergency Medicine
DX: I82.411 Acute embolism and thrombosis of right femoral vein (principal); I74.3 Embolism and thrombosis of arteries of the lower extremities; Z91.14 Patient's other noncompliance with medication regimen; I69.351 Hemiplegia and hemiparesis following cerebral infarction affecting right dominant side; F41.9 Anxiety disorder, unspecified; F32.9 Major depressive disorder, single episode, unspecified; F16.10 Hallucinogen abuse, uncomplicated; Z59.0 Homelessness; F17.200 Nicotine dependence, unspecified, uncomplicated; Z86.711 Personal history of pulmonary embolism
CPT/HCPCS: 80048; 85025; 85610; 85730; 93005; 93926; 93971; 99281; 99285; J2270; J7030

== ENCOUNTER 2017-10-11 10:28 | Emergency (ER) | payer OTHER ==
[~2017-10-11] VITALS: Ht 165.1 cm; Wt 62.5 kg
[2017-10-11 12:01] LABS: BASOPHIL (%) 0.6 % (0-1); EOSINOPHIL (%) 2.6 % (0-5); EOSINOPHIL COUNT 0.2 K/uL (0-0.3); IMMATURE GRANULOCYTE (%) 0.3 % (0.0-0.7); MCH 28.7 PG (29.0-34.0); MCHC 31.6 G/DL (30.0-36.0); MCV 90.9 FL (83-99); MONOCYTE (%) 5.4 % (3-12); MONOCYTE COUNT 0.4 K/uL (0-0.8); NEUTROPHIL (%) 61.1 % (45-76); PLATELET COUNT 364 K/uL (156-360); RBC DIS.WIDTH-CV 18.2 % (11.8-14.6); RBC DIS.WIDTH-SD 61.2 % (39-53); RED BLOOD COUNT 4.18 M/uL (3.80-5.20); WHITE BLOOD COUNT 6.5 K/uL (4.1-10.2)
[2017-10-11 12:09] LABS: PTT 24.2 SEC (25-37)
[2017-10-11 12:14] LABS: CHLORIDE 110 mEq/L (99-109); POTASSIUM 4.3 mEq/L (3.7-5.4); SODIUM 140 mEq/L (136-147)
[2017-10-11 12:15] LABS: GLUCOSE 64 mg/dL (70-99)
[2017-10-11 12:19] LABS: GFR ESTIMATE (CALCULATED) > 59 mL/min/
[2017-10-11 12:20] LABS: UREA NITROGEN (BUN) 20 mg/dL (9-23)
[2017-10-11] MEDS ORDERED: COUMADIN5 MG PO (14:01)
[2017-10-11] MEDS ORDERED: PERCOCET 5/31 TABLET PO (14:01)
[2017-10-11 16:48] VITALS: BP 122/86
== END 2017-10-11 16:48 | disposition left against medical advice (07) ==
LOC: EME 10:28
PROVIDERS: Nurse Practitioner Family
DX: I74.3 Embolism and thrombosis of arteries of the lower extremities (principal); I73.9 Peripheral vascular disease, unspecified; Z86.73 Personal history of transient ischemic attack (TIA), and cerebral infarction without residual deficits; Z91.14 Patient's other noncompliance with medication regimen; Z86.718 Personal history of other venous thrombosis and embolism; Z86.711 Personal history of pulmonary embolism; F31.9 Bipolar disorder, unspecified; F41.9 Anxiety disorder, unspecified; F32.9 Major depressive disorder, single episode, unspecified; Z79.01 Long term (current) use of anticoagulants; F17.200 Nicotine dependence, unspecified, uncomplicated; Z88.5 Allergy status to narcotic agent; Z88.6 Allergy status to analgesic agent
CPT/HCPCS: 80048; 85025; 85610; 85730; 93005; 93971; 99281; 99285; J7030

== ENCOUNTER 2017-10-28 20:20 | Emergency (ER) | payer OTHER ==
[~2017-10-28] VITALS: Ht 160 cm; Wt 63.3 kg
[2017-10-28 20:55] VITALS: BP 106/67
== END 2017-10-28 22:35 | disposition left against medical advice (07) ==
LOC: EME 20:20
DX: Z53.21 Procedure and treatment not carried out due to patient leaving prior to being seen by health care provider (principal)

== ENCOUNTER 2017-10-31 15:32 | Emergency (ER) | payer OTHER ==
[~2017-10-31] VITALS: Ht 165.1 cm; Wt 59.0 kg
[2017-10-31 17:53] LABS: HEMATOCRIT 32.3 % (36.0-46.0); HEMOGLOBIN 10.4 G/DL (11.9-15.5); MCH 29.5 PG (29.0-34.0); MCHC 32.2 G/DL (30.0-36.0); MCV 91.8 FL (83-99); PLATELET COUNT 398 K/uL (156-360); RED BLOOD COUNT 3.52 M/uL (3.80-5.20); WHITE BLOOD COUNT 8.8 K/uL (4.1-10.2)
[2017-10-31 18:02] LABS: PTT 23.8 SEC (25-37)
[2017-11-01 07:30] VITALS: BP 100/63
== END 2017-11-01 07:05 | disposition short-term general hospital (02) ==
LOC: EME 15:32
PROVIDERS: Physician Assistant
DX: I82.411 Acute embolism and thrombosis of right femoral vein (principal); I77.1 Stricture of artery; S00.83XA Contusion of other part of head, initial encounter; Y09 Assault by unspecified means; Y07.03 Male partner, perpetrator of maltreatment and neglect; Z86.718 Personal history of other venous thrombosis and embolism; Z86.711 Personal history of pulmonary embolism; Z79.01 Long term (current) use of anticoagulants; F31.9 Bipolar disorder, unspecified; F41.9 Anxiety disorder, unspecified; F32.9 Major depressive disorder, single episode, unspecified; F17.200 Nicotine dependence, unspecified, uncomplicated; Z86.73 Personal history of transient ischemic attack (TIA), and cerebral infarction without residual deficits; Z88.5 Allergy status to narcotic agent; Z88.6 Allergy status to analgesic agent; Z88.8 Allergy status to other drugs, medicaments and biological substances
CPT/HCPCS: 70450; 70486; 85027; 85610; 85730; 93926; 93971; J3010; J7030

== ENCOUNTER 2017-11-19 04:32 | Emergency (ER) | payer OTHER ==
[~2017-11-19] VITALS: Ht 165.1 cm; Wt 63.8 kg
[2017-11-19 05:33] LABS: CHLORIDE 103 mEq/L (99-109); POTASSIUM 4.2 mEq/L (3.7-5.4); SODIUM 138 mEq/L (136-147)
[2017-11-19 05:34] LABS: GLUCOSE 95 mg/dL (70-99)
[2017-11-19 05:38] LABS: CREATININE 0.9 mg/dL (0.6-1.3); GFR ESTIMATE (CALCULATED) > 59 mL/min/
[2017-11-19 05:39] LABS: UREA NITROGEN (BUN) 12 mg/dL (9-23)
[2017-11-19 05:48] LABS: BASOPHIL (%) 0.6 % (0-1); BASOPHIL COUNT 0.1 K/uL (0-0.1); EOSINOPHIL (%) 0.4 % (0-5); HEMATOCRIT 27.8 % (36.0-46.0); HEMOGLOBIN 8.8 G/DL (11.9-15.5); LYMPHOCYTE (%) 16.8 % (15-42); LYMPHOCYTE COUNT 1.7 K/uL (1.0-2.8); MCH 29.1 PG (29.0-34.0); MCHC 31.7 G/DL (30.0-36.0); MCV 92.1 FL (83-99); MONOCYTE (%) 5.8 % (3-12); MONOCYTE COUNT 0.6 K/uL (0-0.8); NEUTROPHIL (%) 75.4 % (45-76); NEUTROPHIL COUNT 7.6 K/uL (1.8-6.4); RBC DIS.WIDTH-CV 17.4 % (11.8-14.6); RBC DIS.WIDTH-SD 57.8 % (39-53); RED BLOOD COUNT 3.02 M/uL (3.80-5.20); WHITE BLOOD COUNT 10.1 K/uL (4.1-10.2)
[2017-11-19 05:56] LABS: PLATELET COUNT 811 K/uL (156-360)
[2017-11-19] MEDS ORDERED: AUGMENTIN875 MG PO (05:57)
[2017-11-19] MEDS ORDERED: DOXYCYCLINE HY100 MG PO (12:30)
[2017-11-19 13:14] VITALS: BP 107/67
== END 2017-11-19 13:15 | disposition home or self-care (01) ==
LOC: EME 04:32
PROVIDERS: Emergency Medicine Emergency Medical Services
DX: L03.115 Cellulitis of right lower limb (principal); T81.4XXA Infection following a procedure, initial encounter; Z86.718 Personal history of other venous thrombosis and embolism; Z86.711 Personal history of pulmonary embolism; Z86.73 Personal history of transient ischemic attack (TIA), and cerebral infarction without residual deficits; F17.200 Nicotine dependence, unspecified, uncomplicated
CPT/HCPCS: 80048; 85025; 87040; 99281; 99285; J0295; J2270; J3370; J7050

== ENCOUNTER 2017-11-21 17:30 | Emergency (ER) | payer OTHER ==
[~2017-11-21] VITALS: Ht 165.1 cm; Wt 63.7 kg
[~2017-11-21 17:30] MED LIST changes: +DOXYCYCLINE HY100 MG PO
[2017-11-21 20:08] LABS: HEMATOCRIT 28.3 % (36.0-46.0); MCH 29.1 PG (29.0-34.0); MCHC 31.8 G/DL (30.0-36.0); MCV 91.6 FL (83-99); PLATELET COUNT 701 K/uL (156-360); RBC DIS.WIDTH-CV 17.3 % (11.8-14.6); RBC DIS.WIDTH-SD 58.5 % (39-53); RED BLOOD COUNT 3.09 M/uL (3.80-5.20)
[2017-11-21 20:17] LABS: CHLORIDE 106 mEq/L (99-109); POTASSIUM 3.8 mEq/L (3.7-5.4); SODIUM 143 mEq/L (136-147)
[2017-11-21 20:18] LABS: GLUCOSE 76 mg/dL (70-99)
[2017-11-21 20:22] LABS: CREATININE 1.1 mg/dL (0.6-1.3); GFR ESTIMATE (CALCULATED) > 59 mL/min/
[2017-11-21 20:23] LABS: UREA NITROGEN (BUN) 10 mg/dL (9-23)
[2017-11-22 01:23] LABS: INTER. NORMALIZED RATIO 1.7
[2017-11-22] MEDS ORDERED: XARELTO20 MG PO (01:41)
[2017-11-22] MEDS ORDERED: XARELTO15 MG PO (01:41)
[2017-11-22] MEDS ORDERED: GABAPENTIN100 MG PO ×2 (01:42)
[2017-11-22 06:53] LABS: INTER. NORMALIZED RATIO 1.3
[2017-11-22 06:56] LABS: PTT 30.6 SEC (25-37)
[2017-11-23 01:15] LABS: ALBUMIN 3.2 G/DL (3.2-4.8); ALKALINE PHOSPHATASE 74 IU/L (3-129); ALT (GPT) 14 IU/L (3-49); AST (GOT) 9 IU/L (2-34); CHLORIDE 107 MEQ/L (99-109); CREATININE 1.2 MG/DL (0.6-1.3); GFR ESTIMATE (CALCULATED) 55 mL/min/; GLUCOSE 89 mg/dL (70-99); LIPASE 36 U/L (1.0-51.0); POTASSIUM 4.2 MEQ/L (3.7-5.4); SODIUM 140 MEQ/L (136-147); TOTAL BILIRUBIN 0.2 MG/DL (0.0-1.0); TOTAL PROTEIN 6.8 G/DL (6.4-8.3); UREA NITROGEN (BUN) 17 mg/dL (9-23)
[2017-11-23 02:01] LABS: ABS NEUTROPHIL COUNT 4.8; ANISOCYTOSIS 1+; BASOPHILS 0.9 %; EOSINOPHIL ABS CT 0.4; EOSINOPHILS 5.2 % (0-5.0); HELMET CELLS 1+; HEMATOCRIT 29.7 % (36.0-46.0); HEMATOLOGY COMMENT 1 SN; HYPOCHROMASIA 2+; LYMPHOCYTES 23.7 % (15.0-45.0); MACROCYTES 1+; MCH 28.7 PG (29.0-34.0); MCHC 30.3 G/DL (30.0-36.0); MCV 94.6 FL (83-99); MICROCYTOSIS 1+; MONOCYTES 6.1 % (0-9.0); PLAT.SUFFICIENCY INCREASED; POLYCHROMASIA 3+; RBC DIS.WIDTH-CV 17.3 % (11.8-14.6); RBC DIS.WIDTH-SD 60.2 % (39-53); RED BLOOD COUNT 3.14 M/uL (3.80-5.20); SEG.NEUTROPHILS 58.8 % (46.0-76.0); WHITE BLOOD COUNT 8.1 K/uL (4.1-10.2)
[2017-11-23 02:02] LABS: PLATELET COUNT UNABLE TO REPORT K/uL (156-360)
[2017-11-23 21:19] VITALS: BP 120/76
== END 2017-11-23 21:26 | disposition short-term general hospital (02) ==
LOC: EME 17:30
PROVIDERS: Emergency Medicine; Physician Assistant
DX: T82.898A Other specified complication of vascular prosthetic devices, implants and grafts, initial encounter (principal); T82.848A Pain due to vascular prosthetic devices, implants and grafts, initial encounter; Z91.19 Patient's noncompliance with other medical treatment and regimen; T81.4XXA Infection following a procedure, initial encounter; L03.115 Cellulitis of right lower limb; T81.31XA Disruption of external operation (surgical) wound, not elsewhere classified, initial encounter; Z98.890 Other specified postprocedural states; M71.21 Synovial cyst of popliteal space [Baker], right knee; Z86.711 Personal history of pulmonary embolism; Z86.718 Personal history of other venous thrombosis and embolism; Z86.73 Personal history of transient ischemic attack (TIA), and cerebral infarction without residual deficits; F17.200 Nicotine dependence, unspecified, uncomplicated
CPT/HCPCS: 80048; 80053; 83605; 83690; 85025; 85027; 85610; 85730; 87040; 87801; 93926; 93971; 99281; 99285; J0883; J1170; J2270; J2543; J3010; J3370; J7030; J7050

== ENCOUNTER 2017-11-28 17:15 | Inpatient (IN) | payer OTHER ==
[~2017-11-28] VITALS: Ht 165.1 cm; Wt 66.0 kg
[~2017-11-28 17:15] MED LIST changes: +GABAPENTIN100 MG PO
[2017-11-29 11:45] VITALS: BP 123/80
[2017-11-29] MEDS ORDERED: ACETAMINOPHEN325 M1 PO (11:49)
[2017-11-29] MEDS ORDERED: KEFLEX500 MG PO (11:51)
[2017-11-29] MEDS ORDERED: ASPIR 8181 M1 PO (11:51)
[2017-11-29] MEDS ORDERED: FLEXERIL10 MG PO (11:52)
[2017-11-29] MEDS ORDERED: LOVENOX40 MG/0.4 SC (11:53)
[2017-11-29] MEDS ORDERED: MELATIN3 MG PO (11:54)
[2017-11-29] MEDS ORDERED: SEROQUEL50 MG PO (11:55)
[2017-11-29] MEDS ORDERED: NICODERM CQ1 EAC1 TD (11:55)
[2017-11-29] MEDS ORDERED: LIPITOR40 MG PO (11:55)
[2017-11-29] MEDS ORDERED: COLACE100 MG PO (11:56)
[2017-11-29] MEDS ORDERED: FEOSOL325 MG PO (11:56)
[2017-11-29] MEDS ORDERED: NEURONTIN100 MG PO (11:57)
[2017-11-29] MEDS ORDERED: DAILY VALUE1 EACH PO (11:58)
[2017-11-29] MEDS ORDERED: OXYCODONE HCL20 M1 PO (11:59)
[2017-11-29] MEDS ORDERED: SENNA8.6 MG PO (12:00)
[2017-11-29 15:14] VITALS: BP 108/56
[2017-11-30] VITALS (13 sets, daily range): BP systolic 102–121; BP diastolic 54–65
[2017-11-30 04:43] LABS: HEMATOCRIT 20.5 % (36.0-46.0); MCHC 31.2 G/DL (30.0-36.0); MCV 92.8 FL (83-99); PLATELET COUNT 259 K/uL (156-360); RBC DIS.WIDTH-SD 57.6 % (39-53)
[2017-11-30 04:44] LABS: HEMOGLOBIN 6.4 G/DL (11.9-15.5); RED BLOOD COUNT 2.21 M/uL (3.80-5.20)
[2017-11-30 04:46] LABS: ALBUMIN 2.8 g/dL (3.2-4.8); CHLORIDE 104 mEq/L (99-109); SODIUM 138 mEq/L (136-147)
[2017-11-30 04:48] LABS: GLUCOSE 106 mg/dL (70-99); TOTAL PROTEIN 5.5 g/dL (6.4-8.3)
[2017-11-30 04:50] LABS: TOTAL BILIRUBIN 0.2 mg/dL (0.0-1.0)
[2017-11-30 04:52] LABS: ALKALINE PHOSPHATASE 62 IU/L (3-129); GFR ESTIMATE (CALCULATED) > 59 mL/min/
[2017-11-30 04:53] LABS: UREA NITROGEN (BUN) 12 mg/dL (9-23)
[2017-11-30 04:54] LABS: AST (GOT) 43 IU/L (2-34)
[2017-11-30 04:55] LABS: ALT (GPT) 23 IU/L (3-49)
[2017-12-01 04:35] VITALS: BP 110/59
[2017-12-01 08:47] LABS: HEMATOCRIT 26.3 % (36.0-46.0); HEMOGLOBIN 8.3 G/DL (11.9-15.5); MCH 28.2 PG (29.0-34.0); MCHC 31.6 G/DL (30.0-36.0); MCV 89.5 FL (83-99); PLATELET COUNT 310 K/uL (156-360); RBC DIS.WIDTH-CV 18.7 % (11.8-14.6); RBC DIS.WIDTH-SD 61.9 % (39-53); WHITE BLOOD COUNT 5.7 K/uL (4.1-10.2)
[2017-12-01 08:54] LABS: RED BLOOD COUNT 2.94 M/uL (3.80-5.20)
[2017-12-01 12:56] LABS: FOLIC ACID (FOLATE) 17.6 NG/ML (5.0-22.0)
[2017-12-01 13:06] LABS: IRON 12 MCG/DL (35-150); TRANSFERRIN (TIBC) 182.8 mg/dL (215-380); TRANSFERRIN SATUR. 7 % (20-55)
[2017-12-01 14:07] LABS: FERRITIN 253 NG/ML (10-291)
[2017-12-01 15:36] VITALS: BP 119/59
[2017-12-02 06:29] VITALS: BP 98/56
[2017-12-02 14:39] VITALS: BP 108/57
[2017-12-03 05:52] VITALS: BP 96/55
[2017-12-03 19:08] LABS: STOOL OCCULT BLD 1ST SPECIMEN NEGATIVE
[2017-12-04 07:02] VITALS: BP 99/54
[2017-12-04 07:35] VITALS: BP 91/53
[2017-12-04 15:15] VITALS: BP 106/63
[2017-12-05 06:17] VITALS: BP 104/88
[2017-12-05 06:54] VITALS: BP 98/55
[2017-12-05 16:26] VITALS: BP 98/59
[2017-12-06 05:42] VITALS: BP 116/49
[2017-12-06 15:15] VITALS: BP 97/53
[2017-12-07 06:22] VITALS: BP 128/69
[2017-12-07 15:24] VITALS: BP 103/58
[2017-12-08 05:19] VITALS: BP 90/53
[2017-12-08 15:44] VITALS: BP 105/52
[2017-12-09 05:28] VITALS: BP 103/57
[2017-12-09 14:18] LABS: STOOL OCCULT BLD 1ST SPECIMEN NEGATIVE
[2017-12-09 15:16] VITALS: BP 114/60
[2017-12-10 05:45] VITALS: BP 101/56
[2017-12-10] MEDS ORDERED: CYCLOBENZAPRINE10 MG PO (08:22)
[2017-12-10] MEDS ORDERED: OXYCODONE HCL15 MG PO (08:22)
[2017-12-10] MEDS ORDERED: GABAPENTIN400 MG PO (08:22)
[2017-12-10 15:11] VITALS: BP 118/58
[2017-12-10] MEDS ORDERED: SENNA8.6 MG PO (19:07)
[2017-12-10] MEDS ORDERED: COLACE100 MG PO (19:07)
[2017-12-10] MEDS ORDERED: LIPITOR40 MG PO (19:07)
[2017-12-10] MEDS ORDERED: CILOSTAZOL50 MG PO (19:07)
[2017-12-10] MEDS ORDERED: NICODERM CQ1 EAC1 TD (19:07)
[2017-12-10] MEDS ORDERED: ASPIR 8181 M1 PO (19:07)
[2017-12-10] MEDS ORDERED: MIRTAZAPINE15 MG PO (19:07)
[2017-12-10] MEDS ORDERED: FAMOTIDINE40 MG PO (19:07)
[2017-12-10] MEDS ORDERED: FEOSOL325 MG PO (19:07)
[2017-12-11 05:02] VITALS: BP 96/61
== END 2017-12-11 13:24 | DRG 945 ==
LOC: 3WEST 17:15 → ENPENDDIS 12-11 → 3WEST 12-11 13:24
PROVIDERS: Anesthesiology; Physical Medicine & Rehabilitation Pain Medicine
PROC: F07M0ZZ Range of Motion and Joint Mobility Treatment of Musculoskeletal System - Whole Body (ICD-10-PCS; principal; 2017-11-29)
PROC: 30233N1 Transfusion of Nonautologous Red Blood Cells into Peripheral Vein, Percutaneous Approach (ICD-10-PCS; 2017-11-30)
DX: T82.868D Thrombosis due to vascular prosthetic devices, implants and grafts, subsequent encounter (principal); Z89.511 Acquired absence of right leg below knee; G89.18 Other acute postprocedural pain; G54.6 Phantom limb syndrome with pain; R26.2 Difficulty in walking, not elsewhere classified; T87.89 Other complications of amputation stump; Y83.5 Amputation of limb(s) as the cause of abnormal reaction of the patient, or of later complication, without mention of misadventure at the time of the procedure; I99.8 Other disorder of circulatory system; D62 Acute posthemorrhagic anemia; I69.351 Hemiplegia and hemiparesis following cerebral infarction affecting right dominant side; D68.51 Activated protein C resistance; I70.212 Atherosclerosis of native arteries of extremities with intermittent claudication, left leg; G89.29 Other chronic pain; M79.604 Pain in right leg; M25.572 Pain in left ankle and joints of left foot; G43.909 Migraine, unspecified, not intractable, without status migrainosus; K21.9 Gastro-esophageal reflux disease without esophagitis; I10 Essential (primary) hypertension; J31.0 Chronic rhinitis; F31.9 Bipolar disorder, unspecified; F41.8 Other specified anxiety disorders; F19.10 Other psychoactive substance abuse, uncomplicated; F17.210 Nicotine dependence, cigarettes, uncomplicated; Z53.29 Procedure and treatment not carried out because of patient's decision for other reasons; Z91.14 Patient's other noncompliance with medication regimen; Z91.19 Patient's noncompliance with other medical treatment and regimen; Z91.81 History of falling; Z86.711 Personal history of pulmonary embolism; Z86.718 Personal history of other venous thrombosis and embolism; Z87.440 Personal history of urinary (tract) infections; Z79.82 Long term (current) use of aspirin; Z79.01 Long term (current) use of anticoagulants
CPT/HCPCS: 73610; 73630; 80053; 82272; 82607; 82728; 82746; 83540; 84466; 85027; 86850; 86900; 86901; 86920; 93971; 97110 GO; 97530 GP; J1650; J1940; P9016

== ENCOUNTER 2017-12-16 18:17 | Emergency (ER) | payer OTHER ==
[~2017-12-16] VITALS: Ht 167.6 cm; Wt 59.9 kg
[~2017-12-16 18:17] MED LIST changes: +ACETAMINOPHEN325 M1 PO; +ASPIR 8181 M1 PO; +CILOSTAZOL50 MG PO; +COLACE100 MG PO; +CYCLOBENZAPRINE10 MG PO; +DAILY VALUE1 EACH PO; +FAMOTIDINE40 MG PO; +FEOSOL325 MG PO; +GABAPENTIN400 MG PO; +LIPITOR40 MG PO; +MELATIN3 MG PO; +NEURONTIN100 MG PO; +NICODERM CQ1 EAC1 TD; +OXYCODONE HCL15 MG PO; +OXYCODONE HCL20 M1 PO; +SENNA8.6 MG PO; +SEROQUEL50 MG PO
[2017-12-16 19:50] LABS: HEMATOCRIT 32.9 % (36.0-46.0); MCHC 31.9 G/DL (30.0-36.0); MCV 87.7 FL (83-99); RBC DIS.WIDTH-CV 16.5 % (11.8-14.6); RBC DIS.WIDTH-SD 53.5 % (39-53)
[2017-12-16 19:52] LABS: HEMOGLOBIN 10.5 G/DL (11.9-15.5); PLATELET COUNT 483 K/uL (156-360); RED BLOOD COUNT 3.75 M/uL (3.80-5.20)
[2017-12-16 20:07] LABS: CHLORIDE 107 mEq/L (99-109); POTASSIUM 4.4 mEq/L (3.7-5.4); SODIUM 141 mEq/L (136-147)
[2017-12-16 20:09] LABS: GLUCOSE 83 mg/dL (70-99)
[2017-12-16 20:13] LABS: CREATININE 1.2 mg/dL (0.6-1.3); GFR ESTIMATE (CALCULATED) 55 mL/min/; QUANTITATIVE HCG < 4.0 MIU/ML
[2017-12-16 20:14] LABS: UREA NITROGEN (BUN) 17 mg/dL (9-23)
[2017-12-16 22:48] LABS: INTER. NORMALIZED RATIO 1.2
[2017-12-16 22:57] LABS: PTT 25.6 SEC (25-37)
[2017-12-16] MEDS ORDERED: NEURONTIN600 MG PO (23:14)
[2017-12-16 23:40] VITALS: BP 112/70
[2017-12-17] MEDS ORDERED: FEOSOL325 MG PO (21:07)
[2017-12-17] MEDS ORDERED: LOW DOSE ASPIRI81 M1 PO (21:08)
== END 2017-12-16 23:51 | disposition home or self-care (01) ==
LOC: EME 18:17
PROVIDERS: Physician Assistant Medical
DX: G54.6 Phantom limb syndrome with pain (principal); Z89.511 Acquired absence of right leg below knee; I69.351 Hemiplegia and hemiparesis following cerebral infarction affecting right dominant side; Z86.718 Personal history of other venous thrombosis and embolism; T50.906A Underdosing of unspecified drugs, medicaments and biological substances, initial encounter; Z91.14 Patient's other noncompliance with medication regimen; F17.200 Nicotine dependence, unspecified, uncomplicated; F31.9 Bipolar disorder, unspecified; F41.9 Anxiety disorder, unspecified; Z95.0 Presence of cardiac pacemaker; Z88.5 Allergy status to narcotic agent
CPT/HCPCS: 73560; 80048; 83605; 84702; 85027; 85610; 85730; 93926; 99281; 99284; J2270

== ENCOUNTER 2017-12-17 15:33 | Inpatient (IN) | payer OTHER ==
[~2017-12-17] VITALS: Ht 165.1 cm; Wt 60.9 kg
[~2017-12-17 15:33] MED LIST changes: +NEURONTIN600 MG PO
[2017-12-17 16:36] LABS: HEMATOCRIT 34.4 % (36.0-46.0); HEMOGLOBIN 10.9 G/DL (11.9-15.5); MCH 28.3 PG (29.0-34.0); MCHC 31.7 G/DL (30.0-36.0); MCV 89.4 FL (83-99); PLATELET COUNT 428 K/uL (156-360); RBC DIS.WIDTH-CV 16.7 % (11.8-14.6); RBC DIS.WIDTH-SD 54.5 % (39-53); RED BLOOD COUNT 3.85 M/uL (3.80-5.20); WHITE BLOOD COUNT 5.5 K/uL (4.1-10.2)
[2017-12-17 16:45] LABS: CHLORIDE 106 mEq/L (99-109); POTASSIUM 3.9 mEq/L (3.7-5.4); SODIUM 142 mEq/L (136-147)
[2017-12-17 16:47] LABS: GLUCOSE 95 mg/dL (70-99)
[2017-12-17 16:51] LABS: CREATININE 1.2 mg/dL (0.6-1.3); GFR ESTIMATE (CALCULATED) 55 mL/min/
[2017-12-17 16:52] LABS: UREA NITROGEN (BUN) 14 mg/dL (9-23)
[2017-12-17] MEDS ORDERED: FEOSOL325 MG PO (21:07)
[2017-12-17] MEDS ORDERED: LOW DOSE ASPIRI81 M1 PO (21:08)
[2017-12-18 02:27] VITALS: BP 96/70
[2017-12-18 08:02] VITALS: BP 105/63
[2017-12-18 11:41] VITALS: BP 92/50
[2017-12-18 15:32] VITALS: BP 88/53
[2017-12-18 19:05] VITALS: BP 112/66
[2017-12-18 23:31] VITALS: BP 86/51
[2017-12-19 06:16] LABS: HEMATOCRIT 29.4 % (36.0-46.0); MCH 27.5 PG (29.0-34.0); MCHC 30.6 G/DL (30.0-36.0); MCV 89.9 FL (83-99); PLATELET COUNT 369 K/uL (156-360); RBC DIS.WIDTH-CV 16.7 % (11.8-14.6); RBC DIS.WIDTH-SD 55.2 % (39-53); RED BLOOD COUNT 3.27 M/uL (3.80-5.20); WHITE BLOOD COUNT 5.6 K/uL (4.1-10.2)
[2017-12-19 06:51] LABS: CHLORIDE 104 MEQ/L (99-109); CREATININE 1.2 MG/DL (0.6-1.3); GFR ESTIMATE (CALCULATED) 55 mL/min/; GLUCOSE 92 mg/dL (70-99); POTASSIUM 3.9 MEQ/L (3.7-5.4); SODIUM 140 MEQ/L (136-147); UREA NITROGEN (BUN) 18 mg/dL (9-23)
[2017-12-19 07:40] VITALS: BP 98/56
[2017-12-19 10:55] VITALS: BP 121/67
[2017-12-19 15:10] VITALS: BP 104/59
[2017-12-19 21:00] VITALS: BP 116/71
[2017-12-20] VITALS (7 sets, daily range): BP systolic 88–109; BP diastolic 43–64
[2017-12-21 05:32] LABS: HEMATOCRIT 30.8 % (36.0-46.0); HEMOGLOBIN 9.4 G/DL (11.9-15.5); MCH 27.6 PG (29.0-34.0); MCHC 30.5 G/DL (30.0-36.0); MCV 90.6 FL (83-99); PLATELET COUNT 330 K/uL (156-360); RBC DIS.WIDTH-CV 16.3 % (11.8-14.6); RBC DIS.WIDTH-SD 54.7 % (39-53); WHITE BLOOD COUNT 4.7 K/uL (4.1-10.2)
[2017-12-21 06:00] LABS: CHLORIDE 108 MEQ/L (99-109); GFR ESTIMATE (CALCULATED) > 59 mL/min/; GLUCOSE 87 mg/dL (70-99); POTASSIUM 4.2 MEQ/L (3.7-5.4); SODIUM 141 MEQ/L (136-147); UREA NITROGEN (BUN) 17 mg/dL (9-23)
[2017-12-21 07:27] VITALS: BP 99/54
[2017-12-21] MEDS ORDERED: ENDOCET 5-3251 EACH PO (12:06)
[2017-12-21] MEDS ORDERED: KEFLEX500 MG PO (12:06)
[2017-12-21] MEDS ORDERED: OXYCONTIN10 MG PO (12:06)
== END 2017-12-21 15:13 | disposition home health service (06) | DRG 565 ==
LOC: EME 15:33 → EDOF 22:24 → 5WEST 22:24 → EDOF 22:24 → ENRESERV 22:27 → 5WEST 12-18 02:20
PROVIDERS: Emergency Medicine; Hospitalist
DX: T87.43 Infection of amputation stump, right lower extremity (principal); T87.81 Dehiscence of amputation stump; T81.4XXA Infection following a procedure, initial encounter; L03.115 Cellulitis of right lower limb; B95.61 Methicillin susceptible Staphylococcus aureus infection as the cause of diseases classified elsewhere; Y83.5 Amputation of limb(s) as the cause of abnormal reaction of the patient, or of later complication, without mention of misadventure at the time of the procedure; Z91.19 Patient's noncompliance with other medical treatment and regimen; D68.51 Activated protein C resistance; I69.351 Hemiplegia and hemiparesis following cerebral infarction affecting right dominant side; Z91.81 History of falling; G89.29 Other chronic pain; R26.2 Difficulty in walking, not elsewhere classified; K21.9 Gastro-esophageal reflux disease without esophagitis; E78.5 Hyperlipidemia, unspecified; I73.9 Peripheral vascular disease, unspecified; G43.909 Migraine, unspecified, not intractable, without status migrainosus; F31.9 Bipolar disorder, unspecified; F11.11 Opioid abuse, in remission; F17.210 Nicotine dependence, cigarettes, uncomplicated; Z59.0 Homelessness; Z86.711 Personal history of pulmonary embolism; Z86.718 Personal history of other venous thrombosis and embolism
CPT/HCPCS: 73560; 80048; 80202; 83605; 84702; 85027; 85610; 85730; 87070; 87075; 87076; 87077; 87147; 87186; 87205; 93926; 99281; 99284; G0378; J0690; J1170; J1650; J2270; J3370

== ENCOUNTER 2017-12-23 13:47 | Inpatient (IN) | payer OTHER ==
[~2017-12-23] VITALS: Ht 165.1 cm; Wt 63.9 kg
[~2017-12-23 13:47] MED LIST changes: +LOW DOSE ASPIRI81 M1 PO; +OXYCONTIN10 MG PO
[2017-12-23 14:58] LABS: HEMATOCRIT 35.2 % (36.0-46.0); HEMOGLOBIN 11.2 G/DL (11.9-15.5); MCH 28.4 PG (29.0-34.0); MCHC 31.8 G/DL (30.0-36.0); MCV 89.3 FL (83-99); PLATELET COUNT 362 K/uL (156-360); RBC DIS.WIDTH-CV 16.7 % (11.8-14.6); RBC DIS.WIDTH-SD 54.7 % (39-53); RED BLOOD COUNT 3.94 M/uL (3.80-5.20); WHITE BLOOD COUNT 5.4 K/uL (4.1-10.2)
[2017-12-23 15:07] LABS: CHLORIDE 104 mEq/L (99-109); POTASSIUM 4.3 mEq/L (3.7-5.4); SODIUM 139 mEq/L (136-147)
[2017-12-23 15:08] LABS: GLUCOSE 83 mg/dL (70-99)
[2017-12-23 15:12] LABS: GFR ESTIMATE (CALCULATED) > 59 mL/min/
[2017-12-23 15:13] LABS: UREA NITROGEN (BUN) 19 mg/dL (9-23)
[2017-12-23] MEDS ORDERED: REMERON15 M2 PO (16:48)
[2017-12-23] MEDS ORDERED: QUETIAPINE FUMA50 MG PO (17:04)
[2017-12-23 21:02] VITALS: BP 98/56
[2017-12-23 23:54] VITALS: BP 103/54
[2017-12-24 06:57] LABS: HEMATOCRIT 29.5 % (36.0-46.0); MCH 28.5 PG (29.0-34.0); MCHC 31.2 G/DL (30.0-36.0); MCV 91.3 FL (83-99); PLATELET COUNT 271 K/uL (156-360); RBC DIS.WIDTH-SD 57.3 % (39-53); RED BLOOD COUNT 3.23 M/uL (3.80-5.20); WHITE BLOOD COUNT 4.4 K/uL (4.1-10.2)
[2017-12-24 07:07] VITALS: BP 104/58
[2017-12-24 07:07] LABS: HEMOGLOBIN 9.2 G/DL (11.9-15.5)
[2017-12-24 07:24] LABS: CHLORIDE 109 MEQ/L (99-109); CREATININE 0.8 MG/DL (0.6-1.3); GFR ESTIMATE (CALCULATED) > 59 mL/min/; POTASSIUM 3.7 MEQ/L (3.7-5.4); SODIUM 140 MEQ/L (136-147); UREA NITROGEN (BUN) 16 mg/dL (9-23)
[2017-12-24 07:30] LABS: GLUCOSE 109 mg/dL (70-99)
[2017-12-24 10:52] LABS: HEMOGLOBIN A1c (GLYCOHEMOGLOB) 4.3 % (Below 5.7)
[2017-12-24 16:00] VITALS: BP 110/54
[2017-12-25 01:30] VITALS: BP 111/55
[2017-12-25 07:48] VITALS: BP 98/52
[2017-12-25 15:57] VITALS: BP 115/70
[2017-12-26 00:12] VITALS: BP 111/55
[2017-12-26 06:45] LABS: HEMATOCRIT 31.9 % (36.0-46.0); HEMOGLOBIN 9.7 G/DL (11.9-15.5); MCH 27.7 PG (29.0-34.0); MCHC 30.4 G/DL (30.0-36.0); MCV 91.1 FL (83-99); PLATELET COUNT 292 K/uL (156-360); WHITE BLOOD COUNT 4.5 K/uL (4.1-10.2)
[2017-12-26 07:07] LABS: CHLORIDE 111 MEQ/L (99-109); GFR ESTIMATE (CALCULATED) > 59 mL/min/; POTASSIUM 4.3 MEQ/L (3.7-5.4); SODIUM 140 MEQ/L (136-147); UREA NITROGEN (BUN) 18 mg/dL (9-23)
[2017-12-26 07:08] LABS: GLUCOSE 76 mg/dL (70-99)
[2017-12-26 07:13] VITALS: BP 125/71
[2017-12-26 15:34] VITALS: BP 122/74
[2017-12-26 23:58] VITALS: BP 107/64
[2017-12-27 07:10] VITALS: BP 108/71
[2017-12-27 16:36] VITALS: BP 118/70
[2017-12-27 23:23] VITALS: BP 105/64
[2017-12-28 08:30] VITALS: BP 102/60; BP 118/70
[2017-12-28 15:51] VITALS: BP 116/58
[2017-12-29 00:24] VITALS: BP 103/58
[2017-12-29 06:11] LABS: HEMATOCRIT 31.9 % (36.0-46.0); HEMOGLOBIN 9.7 G/DL (11.9-15.5); MCH 28.2 PG (29.0-34.0); MCHC 30.4 G/DL (30.0-36.0); MCV 92.7 FL (83-99); PLATELET COUNT 270 K/uL (156-360); RBC DIS.WIDTH-CV 17.6 % (11.8-14.6); RBC DIS.WIDTH-SD 58.7 % (39-53); RED BLOOD COUNT 3.44 M/uL (3.80-5.20); WHITE BLOOD COUNT 4.5 K/uL (4.1-10.2)
[2017-12-29 06:34] LABS: CHLORIDE 107 MEQ/L (99-109); GFR ESTIMATE (CALCULATED) > 59 mL/min/; GLUCOSE 78 mg/dL (70-99); POTASSIUM 4.3 MEQ/L (3.7-5.4); SODIUM 141 MEQ/L (136-147); UREA NITROGEN (BUN) 19 mg/dL (9-23)
[2017-12-29 08:06] VITALS: BP 103/52
[2017-12-29 15:27] VITALS: BP 99/52
[2017-12-29 17:08] VITALS: BP 120/65
[2017-12-29 21:02] VITALS: BP 114/60
[2017-12-29 23:40] VITALS: BP 116/57
[2017-12-30 07:25] VITALS: BP 100/57
[2017-12-30 08:14] LABS: HEMATOCRIT 29.3 % (36.0-46.0); HEMOGLOBIN 9.1 G/DL (11.9-15.5); MCHC 31.1 G/DL (30.0-36.0); MCV 93.3 FL (83-99); PLATELET COUNT 238 K/uL (156-360); RBC DIS.WIDTH-CV 17.9 % (11.8-14.6); RBC DIS.WIDTH-SD 61.1 % (39-53); RED BLOOD COUNT 3.14 M/uL (3.80-5.20); WHITE BLOOD COUNT 5.8 K/uL (4.1-10.2)
[2017-12-30 08:41] LABS: CHLORIDE 106 MEQ/L (99-109); CREATININE 0.8 MG/DL (0.6-1.3); GFR ESTIMATE (CALCULATED) > 59 mL/min/; GLUCOSE 90 mg/dL (70-99); MAGNESIUM 1.8 mg/dl (1.3-2.7); PHOSPHORUS 4.5 mg/dL (2.5-4.9); POTASSIUM 4.1 MEQ/L (3.7-5.4); SODIUM 139 MEQ/L (136-147); UREA NITROGEN (BUN) 16 mg/dL (9-23)
[2017-12-30 10:55] VITALS: BP 172/99
[2017-12-30 11:20] VITALS: BP 99/58
[2017-12-30 15:51] VITALS: BP 109/54
[2017-12-30 19:40] VITALS: BP 108/57
[2017-12-30 23:35] VITALS: BP 90/49
[2017-12-31 01:05] VITALS: BP 112/60
[2017-12-31 06:30] LABS: BASOPHIL (%) 0.6 % (0-1); EOSINOPHIL (%) 5.9 % (0-5); EOSINOPHIL COUNT 0.3 K/uL (0-0.3); HEMATOCRIT 27.2 % (36.0-46.0); HEMOGLOBIN 8.4 G/DL (11.9-15.5); IMMATURE GRANULOCYTE (%) 0.6 % (0.0-0.7); LYMPHOCYTE (%) 26.4 % (15-42); LYMPHOCYTE COUNT 1.3 K/uL (1.0-2.8); MCH 28.8 PG (29.0-34.0); MCHC 30.9 G/DL (30.0-36.0); MCV 93.2 FL (83-99); MONOCYTE (%) 11.5 % (3-12); MONOCYTE COUNT 0.6 K/uL (0-0.8); NEUTROPHIL COUNT 2.6 K/uL (1.8-6.4); PLATELET COUNT 220 K/uL (156-360); RED BLOOD COUNT 2.92 M/uL (3.80-5.20); WHITE BLOOD COUNT 4.8 K/uL (4.1-10.2)
[2017-12-31 06:57] LABS: CHLORIDE 108 MEQ/L (99-109); CREATININE 0.9 MG/DL (0.6-1.3); GFR ESTIMATE (CALCULATED) > 59 mL/min/; GLUCOSE 90 mg/dL (70-99); POTASSIUM 4.5 MEQ/L (3.7-5.4); SODIUM 139 MEQ/L (136-147); UREA NITROGEN (BUN) 20 mg/dL (9-23)
[2017-12-31 07:54] VITALS: BP 94/53
[2017-12-31 13:29] VITALS: BP 110/52
[2017-12-31 16:50] VITALS: BP 109/55
[2017-12-31 23:17] VITALS: BP 104/54
[2018-01-01 06:36] LABS: HEMATOCRIT 27.7 % (36.0-46.0); HEMOGLOBIN 8.5 G/DL (11.9-15.5); MCH 28.9 PG (29.0-34.0); MCHC 30.7 G/DL (30.0-36.0); MCV 94.2 FL (83-99); PLATELET COUNT 233 K/uL (156-360); RBC DIS.WIDTH-SD 62.2 % (39-53); RED BLOOD COUNT 2.94 M/uL (3.80-5.20); WHITE BLOOD COUNT 4.5 K/uL (4.1-10.2)
[2018-01-01 07:35] VITALS: BP 93/55
[2018-01-01 08:13] LABS: IMM.RETIC FRACTION 18.2 % (3-19); RETIC HGB EQUIVALENT 32.7 (28-36); RETICULOCYTE COUNT 2.1 % (0.5-1.8)
[2018-01-01 08:23] LABS: IRON 24 MCG/DL (35-150); TRANSFERRIN (TIBC) 175.6 mg/dL (215-380); TRANSFERRIN SATUR. 14 % (20-55)
[2018-01-01 08:44] LABS: FOLIC ACID (FOLATE) 10.9 NG/ML (5.0-22.0)
[2018-01-01 08:49] LABS: FERRITIN 77 NG/ML (10-291)
[2018-01-01 15:49] VITALS: BP 97/54
[2018-01-01 23:53] VITALS: BP 99/56
[2018-01-02 06:34] LABS: BASOPHIL (%) 0.5 % (0-1); EOSINOPHIL (%) 6.3 % (0-5); EOSINOPHIL COUNT 0.3 K/uL (0-0.3); IMMATURE GRANULOCYTE (%) 0.5 % (0.0-0.7); LYMPHOCYTE (%) 32.4 % (15-42); LYMPHOCYTE COUNT 1.3 K/uL (1.0-2.8); MCH 27.7 PG (29.0-34.0); MCV 92.3 FL (83-99); MONOCYTE (%) 10.4 % (3-12); MONOCYTE COUNT 0.4 K/uL (0-0.8); NEUTROPHIL (%) 49.9 % (45-76); NEUTROPHIL COUNT 2.1 K/uL (1.8-6.4); PLATELET COUNT 265 K/uL (156-360); RBC DIS.WIDTH-CV 17.7 % (11.8-14.6); RBC DIS.WIDTH-SD 60.9 % (39-53); RED BLOOD COUNT 3.25 M/uL (3.80-5.20); WHITE BLOOD COUNT 4.1 K/uL (4.1-10.2)
[2018-01-02 06:56] LABS: ALBUMIN 2.9 G/DL (3.2-4.8); ALKALINE PHOSPHATASE 66 IU/L (3-129); ALT (GPT) 10 IU/L (3-49); AST (GOT) 10 IU/L (2-34); CHLORIDE 108 MEQ/L (99-109); CREATININE 0.9 MG/DL (0.6-1.3); GFR ESTIMATE (CALCULATED) > 59 mL/min/; GLUCOSE 75 mg/dL (70-99); POTASSIUM 4.9 MEQ/L (3.7-5.4); SODIUM 140 MEQ/L (136-147); TOTAL BILIRUBIN 0.2 MG/DL (0.0-1.0); TOTAL PROTEIN 5.6 G/DL (6.4-8.3); UREA NITROGEN (BUN) 19 mg/dL (9-23)
[2018-01-03 00:37] VITALS: BP 101/62
[2018-01-03 06:48] LABS: HEMATOCRIT 27.5 % (36.0-46.0); HEMOGLOBIN 8.4 G/DL (11.9-15.5); MCH 28.2 PG (29.0-34.0); MCHC 30.5 G/DL (30.0-36.0); MCV 92.3 FL (83-99); PLATELET COUNT 251 K/uL (156-360); RBC DIS.WIDTH-CV 17.3 % (11.8-14.6); RBC DIS.WIDTH-SD 58.7 % (39-53); RED BLOOD COUNT 2.98 M/uL (3.80-5.20); WHITE BLOOD COUNT 3.9 K/uL (4.1-10.2)
[2018-01-03 07:31] VITALS: BP 94/53
[2018-01-03 16:42] VITALS: BP 104/58
[2018-01-04 00:13] VITALS: BP 106/56
[2018-01-04 08:41] VITALS: BP 107/68
[2018-01-04 15:30] VITALS: BP 103/56
[2018-01-05 00:01] VITALS: BP 96/53
[2018-01-05 07:40] VITALS: BP 90/51
[2018-01-05 08:37] LABS: HEMATOCRIT 29.8 % (36.0-46.0); HEMOGLOBIN 9.3 G/DL (11.9-15.5); MCH 28.7 PG (29.0-34.0); MCHC 31.2 G/DL (30.0-36.0); PLATELET COUNT 278 K/uL (156-360); RBC DIS.WIDTH-CV 17.4 % (11.8-14.6); RBC DIS.WIDTH-SD 58.5 % (39-53); RED BLOOD COUNT 3.24 M/uL (3.80-5.20); WHITE BLOOD COUNT 4.3 K/uL (4.1-10.2)
[2018-01-05 09:08] LABS: ALBUMIN 3.1 G/DL (3.2-4.8); ALKALINE PHOSPHATASE 64 IU/L (3-129); ALT (GPT) 15 IU/L (3-49); CHLORIDE 109 MEQ/L (99-109); CREATININE 0.9 MG/DL (0.6-1.3); GFR ESTIMATE (CALCULATED) > 59 mL/min/; GLUCOSE 111 mg/dL (70-99); POTASSIUM 4.4 MEQ/L (3.7-5.4); SODIUM 141 MEQ/L (136-147); TOTAL BILIRUBIN 0.2 MG/DL (0.0-1.0); TOTAL PROTEIN 5.8 G/DL (6.4-8.3); UREA NITROGEN (BUN) 19 mg/dL (9-23)
[2018-01-05 09:09] LABS: AST (GOT) 15 IU/L (2-34)
[2018-01-05] MEDS ORDERED: NICOTINE PATCH1 EAC2 TD (11:23)
[2018-01-05] MEDS ORDERED: LOVENOX80 MG/0.8 SC (11:23)
[2018-01-05] MEDS ORDERED: GABAPENTIN400 MG PO (11:24)
[2018-01-05] MEDS ORDERED: DOCUSATE SODIU100 MG PO (11:24)
[2018-01-05] MEDS ORDERED: SENNA LAX8.6 MG PO (11:25)
[2018-01-05] MEDS ORDERED: POLYETHYLENE GL17 GM PO (11:25)
[2018-01-05] MEDS ORDERED: FENTANYL1 EAC5 TD (11:27)
[2018-01-05] MEDS ORDERED: CYANOCOBAL1000 MCG/2 SC (11:27)
[2018-01-05] MEDS ORDERED: OXYCODONE HCL5 MG PO (11:27)
[2018-01-05 13:54] VITALS: BP 107/55
== END 2018-01-05 16:52 | DRG 908 ==
LOC: EME 13:47 → EDOF 16:12 → 5EAST 16:12 → ENRESERV 16:16 → 5EAST 20:07 → ENPENDDIS 01-05 → 5EAST 01-05 16:52
PROVIDERS: Family Medicine; Hospitalist; Internal Medicine; Nurse Practitioner Family; Physician Assistant
PROC: 0Y6C0Z3 Detachment at Right Upper Leg, Low, Open Approach (ICD-10-PCS; principal; 2017-12-29)
DX: T81.30XA Disruption of wound, unspecified, initial encounter (principal); L03.115 Cellulitis of right lower limb; D64.9 Anemia, unspecified; F31.9 Bipolar disorder, unspecified; T81.4XXA Infection following a procedure, initial encounter; I10 Essential (primary) hypertension; E46 Unspecified protein-calorie malnutrition; Z68.23 Body mass index [BMI] 23.0-23.9, adult; D68.51 Activated protein C resistance; F19.10 Other psychoactive substance abuse, uncomplicated; T87.89 Other complications of amputation stump; G62.9 Polyneuropathy, unspecified; G54.6 Phantom limb syndrome with pain; D68.59 Other primary thrombophilia; E78.00 Pure hypercholesterolemia, unspecified; F41.9 Anxiety disorder, unspecified; T82.898A Other specified complication of vascular prosthetic devices, implants and grafts, initial encounter; F17.210 Nicotine dependence, cigarettes, uncomplicated; T81.89XA Other complications of procedures, not elsewhere classified, initial encounter; K21.9 Gastro-esophageal reflux disease without esophagitis; I70.209 Unspecified atherosclerosis of native arteries of extremities, unspecified extremity; E53.8 Deficiency of other specified B group vitamins; G89.29 Other chronic pain; Z53.20 Procedure and treatment not carried out because of patient's decision for unspecified reasons; Z91.19 Patient's noncompliance with other medical treatment and regimen; Z89.511 Acquired absence of right leg below knee; Z59.0 Homelessness; Z91.14 Patient's other noncompliance with medication regimen; Z86.718 Personal history of other venous thrombosis and embolism; Z90.49 Acquired absence of other specified parts of digestive tract; Z86.711 Personal history of pulmonary embolism
CPT/HCPCS: 80048; 80053; 82607; 82728; 82746; 82948; 83036; 83540; 83605; 83735; 84100; 84466; 85014; 85018; 85025; 85027; 85046; 85652; 86140; 86850; 86900; 86901; 87040; 87070; 87075; 87077; 87147; 87186; 87205; 88305; 97530 GO; 97530 GP; 99202; 99281; 99285; A6260; J0690; J0692; J1170; J1650; J1885; J2250; J2270; J2274; J2405; J3010; J3370; J3420; J7030

== ENCOUNTER 2018-01-23 02:17 | Emergency (ER) | payer OTHER ==
[~2018-01-23] VITALS: Ht 165.1 cm; Wt 63.3 kg
[~2018-01-23 02:17] MED LIST changes: +CYANOCOBAL1000 MCG/2 SC; +FENTANYL1 EAC5 TD; +OXYCODONE HCL5 MG PO; +POLYETHYLENE GL17 GM PO; +QUETIAPINE FUMA50 MG PO; +REMERON15 M2 PO; +SENNA LAX8.6 MG PO
[2018-01-23] MEDS ORDERED: MOTRIN600 MG PO (03:47)
[2018-01-23 04:28] VITALS: BP 127/96
== END 2018-01-23 04:38 | disposition home or self-care (01) ==
LOC: EME → EDBD 02:17 → EME 02:17
DX: T87.89 Other complications of amputation stump (principal); I69.341 Monoplegia of lower limb following cerebral infarction affecting right dominant side; F41.9 Anxiety disorder, unspecified; F32.9 Major depressive disorder, single episode, unspecified; F31.9 Bipolar disorder, unspecified; F17.200 Nicotine dependence, unspecified, uncomplicated; Z79.82 Long term (current) use of aspirin; Z95.810 Presence of automatic (implantable) cardiac defibrillator; Z86.718 Personal history of other venous thrombosis and embolism; Z86.711 Personal history of pulmonary embolism; Z89.611 Acquired absence of right leg above knee; Z90.49 Acquired absence of other specified parts of digestive tract; Z88.5 Allergy status to narcotic agent; Z88.6 Allergy status to analgesic agent
CPT/HCPCS: 73552; 99281; 99284

== ENCOUNTER 2018-04-08 19:46 | Emergency (ER) | payer OTHER ==
[~2018-04-08] VITALS: Ht 165.1 cm; Wt 56.8 kg
[~2018-04-08 19:46] MED LIST changes: +MOTRIN600 MG PO
[2018-04-08 21:23] LABS: HEMATOCRIT 33.1 % (36.0-46.0); HEMOGLOBIN 10.8 G/DL (11.9-15.5); MCH 28.6 PG (29.0-34.0); MCHC 32.6 G/DL (30.0-36.0); MCV 87.6 FL (83-99); PLATELET COUNT 273 K/uL (156-360); RBC DIS.WIDTH-CV 17.4 % (11.8-14.6); RBC DIS.WIDTH-SD 56.1 % (39-53); RED BLOOD COUNT 3.78 M/uL (3.80-5.20); WHITE BLOOD COUNT 7.3 K/uL (4.1-10.2)
[2018-04-08 21:30] LABS: CHLORIDE 113 mEq/L (99-109); POTASSIUM 3.5 mEq/L (3.7-5.4); SODIUM 144 mEq/L (136-147)
[2018-04-08 21:32] LABS: GLUCOSE 95 mg/dL (70-99)
[2018-04-08 21:35] LABS: SERUM ETHYL ALCOHOL < 10 mg/dL
[2018-04-08 21:36] LABS: CREATININE 1.4 mg/dL (0.6-1.3); GFR ESTIMATE (CALCULATED) 46 mL/min/
[2018-04-08 21:37] LABS: UREA NITROGEN (BUN) 20 mg/dL (9-23)
[2018-04-08 23:31] VITALS: BP 119/76
== END 2018-04-08 23:34 | disposition home or self-care (01) ==
LOC: EME → EDBD 19:46 → EME 19:46
PROVIDERS: Emergency Medicine
DX: M79.604 Pain in right leg (principal); G89.29 Other chronic pain; Z89.611 Acquired absence of right leg above knee; R25.8 Other abnormal involuntary movements; F31.9 Bipolar disorder, unspecified; F32.9 Major depressive disorder, single episode, unspecified; F41.9 Anxiety disorder, unspecified; Z86.718 Personal history of other venous thrombosis and embolism; Z86.711 Personal history of pulmonary embolism; Z86.73 Personal history of transient ischemic attack (TIA), and cerebral infarction without residual deficits; F17.200 Nicotine dependence, unspecified, uncomplicated; Z90.49 Acquired absence of other specified parts of digestive tract; Z79.82 Long term (current) use of aspirin; Z88.5 Allergy status to narcotic agent; Z88.6 Allergy status to analgesic agent; Z88.8 Allergy status to other drugs, medicaments and biological substances
CPT/HCPCS: 70450; 80048; 81003; 85027; 99281; 99284; G0480

== ENCOUNTER 2018-04-18 18:04 | Emergency (ER) | payer OTHER ==
[~2018-04-18] VITALS: Ht 165.1 cm; Wt 59.0 kg
[2018-04-18 19:39] LABS: BASOPHIL (%) 0.4 % (0-1); EOSINOPHIL (%) 3.8 % (0-5); EOSINOPHIL COUNT 0.3 K/uL (0-0.3); HEMOGLOBIN 10.5 G/DL (11.9-15.5); IMMATURE GRANULOCYTE (%) 0.4 % (0.0-0.7); LYMPHOCYTE (%) 27.2 % (15-42); LYMPHOCYTE COUNT 1.9 K/uL (1.0-2.8); MCH 29.3 PG (29.0-34.0); MCHC 31.8 G/DL (30.0-36.0); MCV 92.2 FL (83-99); MONOCYTE (%) 6.3 % (3-12); MONOCYTE COUNT 0.4 K/uL (0-0.8); NEUTROPHIL (%) 61.9 % (45-76); NEUTROPHIL COUNT 4.3 K/uL (1.8-6.4); PLATELET COUNT 196 K/uL (156-360); RBC DIS.WIDTH-CV 18.9 % (11.8-14.6); RBC DIS.WIDTH-SD 64.5 % (39-53); RED BLOOD COUNT 3.58 M/uL (3.80-5.20); WHITE BLOOD COUNT 6.9 K/uL (4.1-10.2)
[2018-04-18 19:42] LABS: CHLORIDE 110 mEq/L (99-109); POTASSIUM 4.5 mEq/L (3.7-5.4); SODIUM 140 mEq/L (136-147)
[2018-04-18 19:43] LABS: PTT 24.6 SEC (25-37)
[2018-04-18 19:44] LABS: GLUCOSE 82 mg/dL (70-99)
[2018-04-18 19:48] LABS: CREATININE 1.6 mg/dL (0.6-1.3); GFR ESTIMATE (CALCULATED) 39 mL/min/
[2018-04-18 19:49] LABS: UREA NITROGEN (BUN) 28 mg/dL (9-23)
[2018-04-19 04:58] VITALS: BP 94/55
== END 2018-04-19 04:55 | disposition short-term general hospital (02) ==
LOC: EME 18:04
PROVIDERS: Emergency Medicine
DX: I82.412 Acute embolism and thrombosis of left femoral vein (principal); I82.432 Acute embolism and thrombosis of left popliteal vein; Z89.611 Acquired absence of right leg above knee; Z86.711 Personal history of pulmonary embolism; Z86.718 Personal history of other venous thrombosis and embolism; Z86.73 Personal history of transient ischemic attack (TIA), and cerebral infarction without residual deficits; Z79.82 Long term (current) use of aspirin; F17.200 Nicotine dependence, unspecified, uncomplicated
CPT/HCPCS: 71045; 80048; 85025; 85379; 85610; 85730; 93005; 93971; 99281; 99285; J3010; J7030

== ENCOUNTER 2018-05-14 14:54 | Emergency (ER) | payer OTHER ==
[~2018-05-14] VITALS: Ht 175.3 cm; Wt 65.7 kg
[2018-05-14 16:02] LABS: BASOPHIL (%) 0.9 % (0-1); BASOPHIL COUNT 0.1 K/uL (0-0.1); EOSINOPHIL (%) 2.2 % (0-5); EOSINOPHIL COUNT 0.1 K/uL (0-0.3); HEMATOCRIT 36.6 % (36.0-46.0); IMMATURE GRANULOCYTE (%) 0.3 % (0.0-0.7); LYMPHOCYTE (%) 22.3 % (15-42); LYMPHOCYTE COUNT 1.3 K/uL (1.0-2.8); MCH 30.5 PG (29.0-34.0); MCHC 32.8 G/DL (30.0-36.0); MCV 92.9 FL (83-99); MONOCYTE (%) 6.8 % (3-12); MONOCYTE COUNT 0.4 K/uL (0-0.8); NEUTROPHIL (%) 67.5 % (45-76); NEUTROPHIL COUNT 3.9 K/uL (1.8-6.4); PLATELET COUNT 250 K/uL (156-360); RBC DIS.WIDTH-CV 17.7 % (11.8-14.6); RBC DIS.WIDTH-SD 60.5 % (39-53); RED BLOOD COUNT 3.94 M/uL (3.80-5.20); WHITE BLOOD COUNT 5.8 K/uL (4.1-10.2)
[2018-05-14 16:13] LABS: CHLORIDE 106 mEq/L (99-109); POTASSIUM 4.6 mEq/L (3.7-5.4); SODIUM 136 mEq/L (136-147)
[2018-05-14 16:15] LABS: GLUCOSE 73 mg/dL (70-99)
[2018-05-14 16:19] LABS: CREATININE 1.4 mg/dL (0.6-1.3); GFR ESTIMATE (CALCULATED) 46 mL/min/
[2018-05-14 16:20] LABS: UREA NITROGEN (BUN) 22 mg/dL (9-23)
[2018-05-14 17:35] VITALS: BP 118/74
== END 2018-05-14 17:41 | disposition home or self-care (01) ==
LOC: EME 14:54
PROVIDERS: Emergency Medicine
DX: R25.8 Other abnormal involuntary movements (principal); F31.9 Bipolar disorder, unspecified; F32.9 Major depressive disorder, single episode, unspecified; F41.9 Anxiety disorder, unspecified; F17.200 Nicotine dependence, unspecified, uncomplicated; Z86.73 Personal history of transient ischemic attack (TIA), and cerebral infarction without residual deficits; Z86.718 Personal history of other venous thrombosis and embolism; Z86.711 Personal history of pulmonary embolism; Z90.49 Acquired absence of other specified parts of digestive tract; Z89.611 Acquired absence of right leg above knee; Z79.82 Long term (current) use of aspirin; Z88.5 Allergy status to narcotic agent; Z88.6 Allergy status to analgesic agent
CPT/HCPCS: 80048; 85025; 99281; 99284

== ENCOUNTER 2018-05-18 22:02 | Emergency (ER) | payer OTHER ==
[~2018-05-18] VITALS: Ht 165.1 cm; Wt 62.0 kg
[2018-05-18 22:49] LABS: BASOPHIL (%) 0.5 % (0-1); EOSINOPHIL COUNT 0.1 K/uL (0-0.3); HEMATOCRIT 34.1 % (36.0-46.0); IMMATURE GRANULOCYTE (%) 0.3 % (0.0-0.7); LYMPHOCYTE (%) 27.2 % (15-42); LYMPHOCYTE COUNT 1.8 K/uL (1.0-2.8); MCH 30.5 PG (29.0-34.0); MCHC 32.3 G/DL (30.0-36.0); MCV 94.5 FL (83-99); MONOCYTE (%) 7.4 % (3-12); MONOCYTE COUNT 0.5 K/uL (0-0.8); NEUTROPHIL (%) 62.6 % (45-76); NEUTROPHIL COUNT 4.1 K/uL (1.8-6.4); PLATELET COUNT 228 K/uL (156-360); RBC DIS.WIDTH-CV 17.1 % (11.8-14.6); RBC DIS.WIDTH-SD 59.4 % (39-53); RED BLOOD COUNT 3.61 M/uL (3.80-5.20); WHITE BLOOD COUNT 6.5 K/uL (4.1-10.2)
[2018-05-18 22:58] LABS: CHLORIDE 112 mEq/L (99-109); POTASSIUM 3.8 mEq/L (3.7-5.4)
[2018-05-18 23:00] LABS: GLUCOSE 94 mg/dL (70-99)
[2018-05-18 23:02] LABS: SODIUM 143 mEq/L (136-147)
[2018-05-18 23:03] LABS: SERUM ETHYL ALCOHOL < 10 mg/dL
[2018-05-18 23:04] LABS: GFR ESTIMATE (CALCULATED) > 59 mL/min/
[2018-05-18 23:05] LABS: UREA NITROGEN (BUN) 25 mg/dL (9-23)
[2018-05-19 05:11] VITALS: BP 110/76
== END 2018-05-19 05:13 | disposition home or self-care (01) ==
LOC: EME 22:02
PROVIDERS: Emergency Medicine
DX: F32.9 Major depressive disorder, single episode, unspecified (principal); G40.909 Epilepsy, unspecified, not intractable, without status epilepticus; Z98.890 Other specified postprocedural states; Z89.511 Acquired absence of right leg below knee; Z86.73 Personal history of transient ischemic attack (TIA), and cerebral infarction without residual deficits; Z86.711 Personal history of pulmonary embolism; Z86.718 Personal history of other venous thrombosis and embolism; Z79.02 Long term (current) use of antithrombotics/antiplatelets; F17.200 Nicotine dependence, unspecified, uncomplicated
CPT/HCPCS: 70450; 80048; 85025; 90839; 99281; 99284; G0480